=== PATIENT | male | born 1960 | race Caucasian/White ===

== ENCOUNTER 2021-04-09 09:51 | Emergency (ER) | payer MEDICARE, SELFPAY ==
[2021-04-09] VITALS (30 sets, daily range): BP systolic 121–157; BP diastolic 85–102; PULSE 75–91; RESP 8–26; TEMP 36.8–36.9; O2SAT 90–100
--- NOTE | ~2021-04-09 | CT_ITS ---
EXAMINATION: CT abdomen pelvis w con EXAM DATE: 04/09/2021 11:52 INDICATION: Diverticulitis. Intermittent left-sided abdominal pain. Prostate cancer. Bone metastases. TECHNIQUE: Spiral CT of the abdomen and pelvis was performed following intravenous injection of 100 m L Omnipaque 350. Axial, coronal and sagittal images of the abdomen and pelvis were reviewed. The do se-length product (DLP) for this examination was 497.09 mGy-cm. The exposure was tailored according to patient size (auto mA exposure control), and iterative reconstruction (ASIR) was used as additiona l dose reduction technique. Comparison is made to prior examination from 04/10/2019. FINDINGS: There is a 7 mm stone in the left ureteropelvic junction with mild left hydronephrosis and a delayed nephrogram. Additional 6 mm left inferior calyceal stone. There is a 3 mm right inferior ca lyceal stone. The liver, spleen, adrenal glands and pancreas are unremarkable. Gallbladder is unrem arkable. No biliary obstruction. Couple of metallic clips in prostate bed. The bladder is collaps ed at time of imaging limiting evaluation. There is no retroperitoneal or pelvic lymphadenopathy. There is mild scattered arteriosclerotic disease. Cecum distended with stool. There is moderate scattered colonic diverticulosis. There is no adjacent inflammatory change to suggest diverticulitis. There is small sliding gastroesophageal hiatal hernia . No free intraperitoneal gas. The heart is normal in size. There are no pericardial or pleura l effusions. Dependent subsegmental atelectasis. There are no osteoblastic or osteolytic lesions id entified. IMPRESSION: 1. Left UPJ 7 mm stone, mild hydronephrosis. Delayed nephrogram. 2. Bilateral nephrolithiasis. 3. Colonic diverticulosis. 4. Small hiatal hernia. Reviewed, dictated and finalized at location A.
[2021-04-09 11:21] LABS: Basophils Percent Auto 0.2 % (0.2-1.2); Hematocrit 43.7 % (42.0-52.0); Hemoglobin 14.1 g/dL (14.0-18.0); Immature Granulocyte Absolute 0.03 K/mm3 (0.00-0.031); Immature Granulocyte Percent A 0.3 % (0-0.5); Lymphocytes Absolute Auto 0.52 K/mm3 (0.9-3.2); Lymphocytes Percent Auto 5.3 % (18.3-44.2); Mean Corpuscular HGB Conc 32.3 g/dl (32-36); Mean Corpuscular Hemoglobin 27.5 pg (26-34); Mean Corpuscular Volume 85.2 fl (80-100); Mean Platelet Volume 10.3 fl (7.4-10.4); Monocytes Absolute Auto 0.9 K/mm3 (0.1-0.6); Monocytes Percent Auto 9.2 % (2.6-8.5); Neutrophils Absolute Auto 8.4 K/mm3 (1.3-6.7); Platelet Count Result 186 k/mm3 (150-375); Red Blood Count 5.13 M/mm3 (4.6-6.20); Red Cell Distribution Width 13.8 % (11.5-14.5); White Blood Count 9.8 K/mm3 (4.5-10.0)
--- NOTE | 2021-04-09 11:23 | ED.ABDPAIN ---
HPI - Abdominal Pain General Chief Complaint: Abdominal Pain Stated Complaint: ABD Pain Time Seen by Provider: 04/09/21 11:06 History of Present Illness HPI narrative: 61 yo male w/ h/o kidney stone presents to the ED c/o Abdominal pain. He reports left sided abdominal pain since last night. Primarily RUQ, but has started radiating throughout the entire abdomen. Asscoiated with vomiting and sour taste in his mouth. Feels somewhat like previous kidney stone. No diarrhea, constipation, fever, CP, SOB. Related Data Home Medications Medication Instructions Recorded Confirmed calcium carbonate 600 mg calcium 600 mg PO DAILY 04/01/21 04/09/21 (1,500 mg) tablet cholecalciferol (vitamin D3) 1,250 1,250 mcg PO [id number] 04/01/21 04/09/21 mcg (50,000 unit) capsule omeprazole 20 mg delayed 20 mg PO DAILY PRN 04/01/21 04/09/21 release,disintegrating tablet Allergies Allergy/AdvReac Type Severity Reaction Status Date / Time No Known Allergies Allergy Verified 04/09/21 16:03 Review of Systems Review of Systems: All systems reviewed & are unremarkable except as noted in HPI and below Neurologic: Denies dizziness, Denies numbness and Denies weakness PMFSH Past Medical History Medical History Acid reflux Anxiety Arthritis Cancer of prostate Erectile dysfunction Inguinal hernia Metastatic bone cancer Renal calculi Surgical History Surgical History H/O prostatectomy H/O vasectomy Family History Family History Father Alcoholism Bone cancer Mesothelioma Depression Hypertension Mother Bone cancer Depression Sibling Astrocytoma brain tumor Social History Social History Smoking packs per day: 1 Smoking cigarettes per day: 20.0 Years smoked: 10 Smoking pack-years: 10.00 Smoking status: Former smoker Tobacco type: cigarettes Smoking end date: 02/12/83 Alcohol intake: current Substance use: never Substance use type: does not use Living arrangements: with family Additional living arrangements comments: & CHILDREN Spiritual care concerns: No Agree to blood products: Yes Exam Const: General: healthy appearing, no acute distress and alert Orientation/consciousness: patient oriented x3 HENMT: Head: normal to inspection Neck: Neck: normal visual inspection Resp: Effort & Inspection: normal respiratory effort Auscultation: clear to auscultation bilaterally, no rales, no rhonchi and no wheezes Cardio: Jugular venous distension: no JVD Rate: regular rate Rhythm: regular rhythm Heart sounds: no murmurs GI: Inspection: non-distended GI Palp: Yes Soft to palpation, Yes Tenderness to palpation present (GI) (LLQ), No Guarding due to palpation present (GI) and No Rebound tenderness present : General: Yes no CVA tenderness Skin: General skin exam: normal color Neuro: General: patient oriented x3 and moves all extremities Speech: normal speech Extrem: General: no edema Psych: Appearance: well kempt Affect: normal affect Course Vital Signs Vital signs: Vital Signs Pulse Rate 75 04/09/21 09:57 Respiratory Rate 20 04/09/21 09:57 Pulse Oximetry 94 04/09/21 09:57 Temperature 36.9 C 04/09/21 15:41 Pulse Rate 84 04/09/21 15:41 Respiratory Rate 20 04/09/21 15:41 Blood Pressure 155/85 H 04/09/21 15:41 Pulse Oximetry 100 04/09/21 15:41 MDM - Abdominal Pain MDM Narrative Medical decision making narrative: Dr. Shaikh has seen the patient and will plan to take him for lithotripsy tomorrow. Differential Diagnosis Differential diagnosis: Likely calculus of kidney, constipation, diverticulitis and pancreatitis Medical Records Attestation: I reviewed the patient's medical records. Lab Data
[2021-04-09 11:31] LABS: Alanine Aminotransferase 15 U/L (4-50); Albumin Level 4.4 g/dL (3.5-5.1); Alkaline Phosphatase 80 U/L (38-126); Anion Gap 10 mmol/L (8-16); Aspartate Amino Transferase 24 U/L (17-59); Bilirubin,Total 1.2 mg/dL (0.2-1.3); Blood Urea Nitrogen 22 mg/dL (9-20); Calcium 10.3 mg/dL (8.4-10.2); Carbon Dioxide 22 mmol/L (22-30); Chloride 107 mmol/L (98-107); Estimated CRCL calculation 57 ml/min; Estimated Glomerular Filt Rate 56; Glucose 113 mg/dL (65-110); Lipase 31 U/L (23-300); Potassium 3.6 mmol/L (3.4-5.0); Sodium 139 mmol/L (137-145)
[2021-04-09] MEDS: MAG HYDROX/AL HYDROX/SIMETH 30 ML UDC PO (11:32)
[2021-04-09] MEDS: PANTOPRAZOLE SODIUM IV 40 MG VIAL IV PUSH (11:32)
[2021-04-09] MEDS: ONDANSETRON INJ 4 MG/2 ML VIAL IV PUSH (11:32)
[2021-04-09] MEDS: SODIUM CHLORIDE 0.9% IV 1,000 ML 999 ML IV CONT ×2 (11:33→14:08)
--- NOTE | 2021-04-09 11:45 | PC.NURSE ---
Pt off floor to radiology
[2021-04-09] MEDS: fentaNYL CITRATE INJ (*CRX) 100 MCG/2 ML VIAL 50 MCG IV PUSH (12:26)
[2021-04-09] MEDS: TAMSULOSIN HCL 0.4 MG CAPSULE PO (12:28)
[2021-04-09 13:31] LABS: Add Urine Microscopic? YES; Amorphous Sediment Urine Few; Appearance Urine Cloudy (Clear); Bilirubin Urine Negative (Negative); Blood Urine Negative (Negative); Color Urine Yellow (Yellow); Glucose Urine UA Negative (Negative); Ketones Urine 1+ mg/dL (Negative); Leukocyte Esterase Ur Negative LEU/UL (Negative); Mucus Urine Rare /lpf; Nitrate Urine Negative (Negative); Protein Urine 1+ mg/dL (Negative); Specific Grav Ur 1.023 (1.001-1.035); Urobilinogen Urine Negative mg/dL (<2.0)
[2021-04-09 15:13] LABS: WBC Urine 0-3 /hpf
[2021-04-09] MEDS: MORPHINE SULFATE (*CRX) 4 MG/ML INJ IV PUSH (15:32)
== END 2021-04-09 15:45 | disposition home or self-care (01) ==
PROVIDERS: Physician Assistant; Emergency Provider Emergency Medicine; PCP Physician Assistant
DX: N13.2 Hydronephrosis with renal and ureteral calculous obstruction (principal); Z87.442 Personal history of urinary calculi; K21.9 Gastro-esophageal reflux disease without esophagitis; M19.90 Unspecified osteoarthritis, unspecified site; Z85.830 Personal history of malignant neoplasm of bone; Z90.79 Acquired absence of other genital organ(s); Z87.891 Personal history of nicotine dependence; K57.90 Diverticulosis of intestine, part unspecified, without perforation or abscess without bleeding; K44.9 Diaphragmatic hernia without obstruction or gangrene
CPT/HCPCS: 36415; 74177; 80053; 81001; 83690; 85025; 96361; 96374; 96375; 99284; A9270; C9113; J2270; J2405; J3010; J7030; Q9967

== ENCOUNTER 2021-04-10 02:20 | Day surgery (SDC) | payer MEDICARE, SELFPAY ==
[2021-04-09 16:09] VITALS: BMI 26.6
--- NOTE | 2021-04-09 16:51 | PM.HPGS ---
History of Present Illness History of Present Illness Consent: Risks, benefits, and alternatives have been discussed and questions answered. Patient agrees to proceed with procedure. Chief complaint: left kidney stone Narrative: Remy Zamorano is a 61 year old male with a known history of infrequent urolithiasis that have, on occasion, required intervention. He presents to the ER with acute left flank pain, nausea and vomiting. Axial imaging demonstrates a stone obstructing 7 mm left proximal ureteral stone. He has had no fevers chills or gross hematuria and urinalysis does not appear infected. He has not on anticoagulants. After discussion of options we elected for outpatient ESWL. He is aware the risk including, but not limited to, adverse cardiopulmonary events, urinary tract infection, failure to completely treat the stone and perinephric hematoma. Review of Systems Cardiovascular: Cardiovascular: Denies chest pain, Denies lightheadedness, Denies palpitations and Denies dyspnea Respiratory: Respiratory: Denies dyspnea Gastrointestinal: Gastrointestinal: Denies diarrhea, Denies nausea and Denies vomiting Genitourinary: Genitourinary: Denies hematuria and Denies dysuria Endocrine: Endocrine: Denies palpitations PMFSH Past Medical History Medical History Acid reflux Anxiety Arthritis Cancer of prostate Erectile dysfunction Inguinal hernia Metastatic bone cancer Renal calculi Surgical History Surgical History H/O prostatectomy H/O vasectomy Family History Family History Father Alcoholism Bone cancer Mesothelioma Depression Hypertension Mother Bone cancer Depression Sibling Astrocytoma brain tumor Social History Social History Smoking packs per day: 1 Smoking cigarettes per day: 20.0 Years smoked: 10 Smoking pack-years: 10.00 Smoking status: Former smoker Tobacco type: cigarettes Smoking end date: 02/12/83 Alcohol intake: current Substance use: never Substance use type: does not use Living arrangements: with family Additional living arrangements comments: & CHILDREN Spiritual care concerns: No Agree to blood products: Yes Meds Home Medications and Allergies Home Medications Medication Instructions Recorded Confirmed Type calcium carbonate 600 mg calcium 600 mg PO DAILY 04/01/21 04/09/21 History (1,500 mg) tablet cholecalciferol (vitamin D3) 1,250 1,250 mcg PO [id number] 04/01/21 04/09/21 History mcg (50,000 unit) capsule omeprazole 20 mg delayed 20 mg PO DAILY PRN 04/01/21 04/09/21 History release,disintegrating tablet tadalafil 10 mg tablet 10 mg PO DAILY PRN #10 tablet 04/01/21 04/09/21 Rx alprazolam 0.5 mg tablet 0.5 mg PO BID PRN #60 tablet 04/06/21 04/09/21 Rx hydrocodone 7.5 mg-acetaminophen 1 tablet PO Q4H PRN #30 tablet 04/06/21 04/09/21 Rx 325 mg tablet ciprofloxacin HCl 500 mg PO Q12H #6 tablet 04/09/21 04/09/21 Rx hydrocodone-acetaminophen 1 tablet PO Q6H PRN #20 tablet 04/09/21 04/09/21 Rx Allergies Allergy/AdvReac Type Severity Reaction Status Date / Time No Known Allergies Allergy Verified 04/09/21 16:03 Exam Const: General: no acute distress Resp: Effort & Inspection: normal respiratory effort GI: Inspection: non-distended GI Palp: No abdominal tenderness and No Guarding due to palpation present (GI) Auscultation: normal bowel sounds Assessment and Plan Assessment and plan (1) Calculus of left ureter: Code(s): N20.1 - Calculus of ureter Status: Acute Assessment and Plan: Left ESWL
[2021-04-10] VITALS (10 sets, daily range): BP systolic 125–151; BP diastolic 59–89; PULSE 62–75; RESP 14–18; TEMP 36.2; O2SAT 98–100
--- NOTE | ~2021-04-10 | XR_ITS ---
EXAMINATION: XR abdomen/kub 1V DATE: 04/10/2021 12:20 INDICATION: Left-sided ureteral stone. TECHNIQUE: A supine view of the abdomen on 2 radiographs was obtained. COMPARISON: CT dated 04/09/2021 FINDINGS: The previously identified 7 mm stone at the left ureteropelvic junction and 6 mm stone at the lower p ole of the left kidney are both clearly visible on the plain radiographs. No other urolithiasis with additional smaller stones seen at the lower pole calyx of the right kidney on prior CT obscured by mo ttled stool and gas in the proximal colon. No dilated loops of small bowel to suggest obstruction. Po stoperative changes in the pelvis. Moderate lower lumbar spondylosis. Mild left-sided and moderate ri ght-sided hip osteoarthritis. IMPRESSION: 1. Previously noted stones at the lower pole of the left kidney and at the left ureteropelvic junctio n are clearly visible on the plain radiographs. Reviewed, dictated and finalized at location B. IMPRESSION: 1. Previously noted stones at the lower pole of the left kidney and at the left ureteropelvic junction are clearly visible on the plain radiographs.
--- NOTE | 2021-04-10 06:34 | WPDHPUPDATE1 ---
History and Physical Update Update Date/Time: 04/10/21 06:34 History and Physical has been reviewed, including an updated exam of the patient. There are NO changes in the patient's condition. Risks, benefits, and alternatives have been discussed and questions answered. Patient agrees to proceed with procedure.
[2021-04-10] MEDS: LACTATED RINGERS 1,000 ML 30 ML IV CONT ×2 (12:50→16:09)
--- NOTE | 2021-04-10 12:55 | WPDANESEPPF ---
Anes - Initial Pre Proc Eval Procedure: Operation Date: 04/10/21 14:00 Proposed Procedures p Left Extracorporeal Shock Wave Lithotripsy - Isaac Shaikh MD Date/Time: 04/10/21 12:55 Surgeon: Isaac Shaikh MD Pre Op Diagnosis: left kidney stone Patient Data Age: 61 Gender: M Height: 1.83 m Weight: 89 kg Allergies Allergy/AdvReac Type Severity Reaction Status Date / Time No Known Allergies Allergy Verified 04/09/21 16:03 Home Medications Medication Instructions Recorded Confirmed Type calcium carbonate 600 mg calcium 600 mg PO DAILY 04/01/21 04/09/21 History (1,500 mg) tablet cholecalciferol (vitamin D3) 1,250 1,250 mcg PO [id number] 04/01/21 04/09/21 History mcg (50,000 unit) capsule omeprazole 20 mg delayed 20 mg PO DAILY PRN 04/01/21 04/09/21 History release,disintegrating tablet tadalafil 10 mg tablet 10 mg PO DAILY PRN #10 tablet 04/01/21 04/09/21 Rx alprazolam 0.5 mg tablet 0.5 mg PO BID PRN #60 tablet 04/06/21 04/09/21 Rx hydrocodone 7.5 mg-acetaminophen 1 tablet PO Q4H PRN #30 tablet 04/06/21 04/09/21 Rx 325 mg tablet ciprofloxacin HCl 500 mg PO Q12H #6 tablet 04/09/21 04/09/21 Rx hydrocodone-acetaminophen 1 tablet PO Q6H PRN #20 tablet 04/09/21 04/09/21 Rx Patient hx anesthesia problems: none Family hx anesthesia problems: none PMFSH Past Medical History Medical History Acid reflux Anxiety Arthritis Cancer of prostate Erectile dysfunction Inguinal hernia Metastatic bone cancer Renal calculi Surgical History Surgical History H/O prostatectomy H/O vasectomy Family History Family History Father Alcoholism Bone cancer Mesothelioma Depression Hypertension Mother Bone cancer Depression Sibling Astrocytoma brain tumor Social History Social History Smoking packs per day: 1 Smoking cigarettes per day: 20.0 Years smoked: 10 Smoking pack-years: 10.00 Smoking status: Former smoker Tobacco type: cigarettes Smoking end date: 02/12/83 Alcohol intake: current Substance use: never Substance use type: does not use Living arrangements: with family Additional living arrangements comments: & CHILDREN Spiritual care concerns: No Agree to blood products: Yes Anes - Eval Final PreProcedure Day of Procedure 04/10/21 12:55 Patient weight: overweight Heart: regular rate and rhythm Lungs: clear to auscultation and normal air movement Airway: Mallampati scale class II Neurological: alert and oriented Last oral intake: >/= 8 hours ASA classification: II Emergent: no Anesthetic plan: proceed Anesthesia type and monitoring: general LMA and standard monitoring Informed Consent: The patient's anesthetic plan and its attendant risks and benefits were discussed with the patient/family/POA. Questions were solicited and answers provided to the satisfaction of the patient/family/POA.
[2021-04-10] MEDS: fentaNYL CITRATE INJ (*CRX) 100 MCG/2 ML VIAL 25 MCG IV PUSH ×7 (13:00→15:57)
[2021-04-10] MEDS: ceFAZolin 2 GM/D5W 50 ML 2 GM/50 ML BAG IVPB (13:37)
[2021-04-10 13:59] LABS: INR 0.9; Prothrombin Time 12.3 Seconds (11.1-14.7)
[2021-04-10 14:00] LABS: Partial Thromboplastin Time 22.6 SECONDS (22.3-36.8)
--- NOTE | 2021-04-10 14:05 | W.PM.PROC2 ---
Procedure Note - Detailed Date of Procedure 04/10/21 Pre-op Diagnosis Left ureteral stone Post-op Diagnosis same Procedure Performed Left ESWL Surgeon Isaac Shaikh MD Anesthesia general Description of Procedure The patient was brought to the operative suite where he was placed in the supine position on the Dornier lithotripsy table. The focal point of the lithotripter was placed at a 7mm left proximal ureteral calculus. A total of 3000 shocks were delivered at a power setting of 6. There appeared to be good fragmentation of the stone. The patient tolerated the procedure well and was taken to the recovery room in good condition. Estimated Blood Loss 0 Drains No Packing No Pathology none sent Complications No immediate complications Condition stable Disposition PACU
--- NOTE | 2021-04-10 14:57 | SUR.PHASEI ---
Simple mask removed at 3086.
[2021-04-10] MEDS: oxyCODONE HCL (*CRX) 5 MG TAB IR PO (15:41)
[2021-04-10] MEDS: KETOROLAC 30 MG/ML VIAL (*BKC) IV PUSH (15:58)
== END 2021-04-10 17:15 | disposition home or self-care (01) ==
PROVIDERS: PCP Physician Assistant; Visit Provider Urology
PROC: (CPT 50590; principal; 2021-04-10 14:00)
DX: N20.1 Calculus of ureter (principal); F41.9 Anxiety disorder, unspecified; M19.90 Unspecified osteoarthritis, unspecified site; K21.9 Gastro-esophageal reflux disease without esophagitis; Z87.891 Personal history of nicotine dependence; Z85.46 Personal history of malignant neoplasm of prostate; Z85.830 Personal history of malignant neoplasm of bone
CPT/HCPCS: 50590; 36415; 74018; 85610; 85730; A9270; J0131; J0690; J1100; J1885; J2250; J2405; J2704; J3010; J7120

== ENCOUNTER 2021-04-12 06:08 | Emergency (ER) | payer MEDICARE, SELFPAY ==
--- NOTE | ~2021-04-12 | XR_ITS ---
EXAMINATION: CT abdomen pelvis wo con, XR abdomen/kub 1V DATE: 04/12/2021 06:31 INDICATION: Nephrolithiasis presenting with left flank pain. TECHNIQUE: 1. Computed tomography (CT) of the abdomen and pelvis was performed without intravenous contrast. Aut omated exposure control and iterative reconstruction technique were employed. The dose-length product was 215.42 mGy-cm. 2. AP view of the abdomen and pelvis was obtained on 2 radiographs. COMPARISON: CT dated 04/09/2021 and KUB dated 04/10/2021 FINDINGS: CT: Linear bands of discoid atelectasis at the dependent aspect of the bilateral lower lobes. Heart size is normal. No pericardial or pleural effusion. Small sliding-type hiatal hernia. 1 cm low-attenuation cyst in the right hepatic lobe. Gallbladder, spleen, pancreas and bilateral adrenal glands are terese l. 2 mm nonobstructing stone at a lower pole calyx of the right kidney. Obstructing 3 mm stone in the proximal left ureter. There is mild proximal hydroureteronephrosis with additional 1 mm and [address] aurora in the mildly dilated proximal ureter. There are 4 additional nonobstructing stones, the largest measuring up to 4 mm in the calyces of the lower pole of the left kidney. On the earlier CT there wer e single larger stones in the left ureter and at the lower pole of the left kidney suggesting that th e current stones represent stone fragments secondary to interval lithotripsy. Bladder is normal. Ly ls including the appendix are normal. Postoperative change of prior right inguinal hernia mesh repair . There are couple additional surgical clips at the base of the prostate. No free intraperitoneal gas or fluid. No pathologically enlarged abdominal or pelvic lymphadenopathy. Mild lumbar dextrocurvatur e with moderate spondylosis. Moderate bilateral hip osteoarthritis. KUB: The larger obstructing stone in the proximal left ureter as well as couple of the larger stones at th e lower pole of the left kidney and the stone at the lower pole of the right kidney are all visible o n the plain radiographs. Postoperative changes in the pelvis. IMPRESSION: 1. Bilateral nephrolithiasis with obstructing 3 mm stone in the proximal left ureter with persistent mild left hydroureteronephrosis. There appear to be more and smaller stones in the left kidney and ur eter than on the prior cyst with interval lithotripsy. Reviewed, dictated and finalized at location A. IMPRESSION: 1. Bilateral nephrolithiasis with obstructing 3 mm stone in the proximal left u reter with persistent mild left hydroureteronephrosis. There appear to be more and smaller stones in the left kidney and ureter than on the prior cyst with in terval lithotripsy.
[2021-04-12 06:11] VITALS: BP 173/90; PULSE 66; RESP 18; TEMP 36.4
--- NOTE | 2021-04-12 06:16 | ED.ABDPAIN ---
HPI - Abdominal Pain General Chief Complaint: Abdominal Pain <Omar Plaza DO - Last Filed: 04/12/21 06:17> Stated Complaint: abd pain <Omar Plaza DO - Last Filed: 04/12/21 06:17> Time Seen by Provider: 04/12/21 06:17 <Omar Plaza DO - Last Filed: 04/12/21 06:17> Source: RN notes reviewed <Omar Plaza DO - Last Filed: 04/12/21 06:17> History of Present Illness HPI narrative: Patient presents to emergency department from home for left flank pain. Patient had left-sided lithotripsy performed by Dr. Montiel on 04/10/2021. Patient states she had a few episodes of pain yesterday but he states pain became severe approximately 2 hours ago pain is located in the left flank and radiates around the left abdomen described as sharp and stabbing associate with nausea. Patient denies any fever chills chest pain shortness of breath or any other symptoms states he took hydrocodone for pain at home with minimal <Omar Plaza DO - Last Filed: 04/12/21 06:17> Related Data Home Medications: Home Medications Medication Instructions Recorded Confirmed calcium carbonate 600 mg calcium 600 mg PO DAILY 04/01/21 04/09/21 (1,500 mg) tablet cholecalciferol (vitamin D3) 1,250 1,250 mcg PO [id number] 04/01/21 04/09/21 mcg (50,000 unit) capsule omeprazole 20 mg delayed 20 mg PO DAILY PRN 04/01/21 04/09/21 release,disintegrating tablet <Omar Plaza DO - Last Filed: 04/12/21 06:17> Allergies/Adverse Reactions: Allergies Allergy/AdvReac Type Severity Reaction Status Date / Time No Known Allergies Allergy Verified 04/10/21 13:18 <Omar Plaza DO - Last Filed: 04/12/21 06:17> Review of Systems Review of Systems: Gen.: Denies fevers or chills ENT: Denies congestion Respiratory: Denies shortness of breath or cough CV: Denies chest pain or palpitations GI: See HPI denies burning, urgency, frequency or hematuria Musculoskeletal: Denies back pain or muscle pain Neuro: Denies numbness, tingling, weakness or focal weakness Skin: Denies rash Except as documented, all other systems reviewed and negative <Omar Plaza DO - Last Filed: 04/12/21 06:17> [facility] Past Medical History Medical History: Medical History Acid reflux Anxiety Arthritis Cancer of prostate Erectile dysfunction Inguinal hernia Metastatic bone cancer Renal calculi <Omar Plaza DO - Last Filed: 04/12/21 06:17> Surgical History Surgical History: Surgical History H/O prostatectomy H/O vasectomy <Omar Plaza DO - Last Filed: 04/12/21 06:17> Family History Family History: Family History Father Alcoholism Bone cancer Mesothelioma Depression Hypertension Mother Bone cancer Depression Sibling Astrocytoma brain tumor <Omar Plaza DO - Last Filed: 04/12/21 06:17> Social History Social History: Social History Smoking packs per day: 1 Smoking cigarettes per day: 20.0 Years smoked: 10 Smoking pack-years: 10.00 Smoking status: Former smoker Tobacco type: cigarettes Smoking end date: 02/12/83 Alcohol intake: current Substance use: never Substance use type: does not use Additional living arrangements comments: & CHILDREN Spiritual care concerns: No Agree to blood products: Yes <Omar Plaza DO - Last Filed: 04/12/21 06:17> Exam Narrative: APPEARANCE: No acute distress, nontoxic, resting in bed EYES: EOMI HEENT: Normocephalic, atraumatic, OMM RESPIRATORY: No respiratory distress Clear to auscultation bilaterally with no rhonchi wheezing or rales. CARDIOVASCULAR: Regular rate and rhythm without murmurs rubs or gallops. ABDOMINAL: Soft, non
--- NOTE | 2021-04-12 06:22 | PC.NURSE ---
Patient in CT.
[2021-04-12] MEDS: KETOROLAC 30 MG/ML VIAL (*BKC) IV PUSH (06:28)
[2021-04-12] MEDS: SODIUM CHLORIDE 0.9% IV 1,000 ML 999 ML IV CONT (06:28)
[2021-04-12] MEDS: ONDANSETRON INJ 4 MG/2 ML VIAL IV PUSH (06:28)
[2021-04-12 06:30] LABS: Basophils Percent Auto 0.3 % (0.2-1.2); Eosinophils Absolute Auto 0.2 K/mm3 (0-0.3); Eosinophils Percent Auto 2.6 % (0-4.4); Hematocrit 39.4 % (42.0-52.0); Hemoglobin 12.7 g/dL (14.0-18.0); Immature Granulocyte Absolute 0.02 K/mm3 (0.00-0.031); Immature Granulocyte Percent A 0.3 % (0-0.5); Lymphocytes Absolute Auto 1.62 K/mm3 (0.9-3.2); Lymphocytes Percent Auto 24.8 % (18.3-44.2); Mean Corpuscular HGB Conc 32.2 g/dl (32-36); Mean Corpuscular Hemoglobin 27.7 pg (26-34); Mean Corpuscular Volume 85.8 fl (80-100); Mean Platelet Volume 9.8 fl (7.4-10.4); Monocytes Absolute Auto 1.1 K/mm3 (0.1-0.6); Monocytes Percent Auto 16.2 % (2.6-8.5); Neutrophils Absolute Auto 3.6 K/mm3 (1.3-6.7); Neutrophils Percent Auto 55.8 % (45.5-73.1); Platelet Count Result 179 k/mm3 (150-375); Red Blood Count 4.59 M/mm3 (4.6-6.20); Red Cell Distribution Width 13.5 % (11.5-14.5); White Blood Count 6.5 K/mm3 (4.5-10.0)
--- NOTE | 2021-04-12 06:32 | PC.NURSE ---
Patient taken to xray.
[2021-04-12] MEDS: TAMSULOSIN HCL 0.4 MG CAPSULE PO (06:39)
[2021-04-12 06:44] LABS: Alanine Aminotransferase 14 U/L (4-50); Albumin Level 3.6 g/dL (3.5-5.1); Alkaline Phosphatase 65 U/L (38-126); Anion Gap 6 mmol/L (8-16); Aspartate Amino Transferase 22 U/L (17-59); Bilirubin,Total 0.7 mg/dL (0.2-1.3); Blood Urea Nitrogen 19 mg/dL (9-20); Carbon Dioxide 24 mmol/L (22-30); Chloride 110 mmol/L (98-107); Estimated CRCL calculation 81 ml/min; Estimated Glomerular Filt Rate > 60; Glucose 95 mg/dL (65-110); Lipase 34 U/L (23-300); Potassium 3.9 mmol/L (3.4-5.0); Sodium 140 mmol/L (137-145)
[2021-04-12 06:56] VITALS: BP 145/82; PULSE 56; RESP 14; O2SAT 95
[2021-04-12 07:37] LABS: Add Urine Microscopic? YES; Appearance Urine Cloudy (Clear); Bacteria Urine Trace /hpf; Bilirubin Urine Negative (Negative); Blood Urine 3+ (Negative); Budding Yeast Urine Present /hpf; Color Urine Yellow (Yellow); Glucose Urine UA Negative (Negative); Ketones Urine 1+ mg/dL (Negative); Leukocyte Esterase Ur Negative LEU/UL (Negative); Mucus Urine Rare /lpf; Nitrate Urine Negative (Negative); Protein Urine 2+ mg/dL (Negative); RBC Urine >75 /hpf (0-2); Specific Grav Ur 1.018 (1.001-1.035); WBC Urine 16-20 /hpf
[2021-04-12 08:57] VITALS: BP 116/70; PULSE 82; RESP 18; O2SAT 100
== END 2021-04-12 09:18 | disposition home or self-care (01) ==
PROVIDERS: Emergency Medicine; Emergency Provider Emergency Medicine; PCP Physician Assistant
DX: N13.2 Hydronephrosis with renal and ureteral calculous obstruction (principal); K21.9 Gastro-esophageal reflux disease without esophagitis; M19.90 Unspecified osteoarthritis, unspecified site; Z85.46 Personal history of malignant neoplasm of prostate; Z85.830 Personal history of malignant neoplasm of bone; Z87.442 Personal history of urinary calculi; Z90.79 Acquired absence of other genital organ(s); Z87.891 Personal history of nicotine dependence
CPT/HCPCS: 36415; 74018; 74176; 80053; 81001; 83690; 85025; 87086; 96361; 96374; 96375; 99284; A9270; J1885; J2405; J7030

== ENCOUNTER 2023-11-16 08:12 | Day surgery (SDC) | payer MEDICARE, SELFPAY ==
[2023-10-27 15:21] VITALS: BMI 25.5
[2023-11-03 14:18] VITALS: BMI 25.8
[2023-11-16 09:41] VITALS: BP 125/83; PULSE 61; RESP 16; TEMP 36.7; O2SAT 99; BMI 24.7
[2023-11-16] MEDS: LACTATED RINGERS 1,000 ML 150 ML IV CONT (09:43)
--- NOTE | 2023-11-16 09:58 | PM.HPGS ---
History of Present Illness History of Present Illness Consent: Risks, benefits, and alternatives have been discussed and questions answered. Patient agrees to proceed with procedure. Chief complaint: Neoplasm Screening of Colon Narrative: Remy Zamorano is a 63 year old male presents for screening colonoscopy. Patient has current weight appetite and bowel habits are normal. He denies abdominal pain. Patient has had no bleeding. Family history noncontributory. Review of Systems Review of Systems: Review of Systems noncontributory. [facility] Past Medical History Medical History Acid reflux Anxiety Arthritis Cancer of prostate Erectile dysfunction History of hepatitis C Inguinal hernia Metastatic bone cancer Renal calculi Surgical History Surgical History H/O prostatectomy H/O tooth extraction Pt had all teeth surgically extracted Mar 2022. H/O vasectomy Family History Family History Father Family history of lung cancer Father Alcoholism Bone cancer Mesothelioma Depression Hypertension Mother Bone cancer Depression Sibling Astrocytoma brain tumor Other Family history of tuberculosis Social History Social History Smoking packs per day: 1 Smoking cigarettes per day: 20.0 Years smoked: 10 Smoking pack-years: 10.00 Smoking status: Never smoker Tobacco type: cigarettes Smoking end date: 02/12/83 Alcohol intake: current Alcohol use details: seldom; socially Substance use: never Substance use type: does not use Lack of Transportation: No Lack of Food: Never True Current Housing: I Have Housing Concerned About Future Housing: No Difficulty Paying Gas/Electric Bills: No Difficulty Paying for Meds: No Currently Unemployed: No Education: High School Diploma/GED Difficulty w/ Childcare or Family Care: No Living arrangements: with family Additional living arrangements comments: & CHILDREN Spiritual care concerns: No Agree to blood products: Yes Meds Home Medications and Allergies Home Medications Medication Instructions Recorded Confirmed Type omeprazole 20 mg delayed 20 mg PO DAILY PRN Indigestion 04/01/21 11/16/23 History release,disintegrating tablet hydrocodone 7.5 mg-acetaminophen 1 tablet PO Q4H PRN pain #30 tabs 03/12/24 04/03/24 Rx 325 mg tablet sildenafil (pulm.hypertension) 20 40 mg PO DAILY PRN Erectile 11/03/23 11/16/23 History mg tablet Dysfunction Allergies Allergy/AdvReac Type Severity Reaction Status Date / Time No Known Allergies Allergy Verified 11/16/23 09:31 Vital Signs Vital Signs - 24 hr 11/16/23 09:41 Temperature 98.1 F Pulse Rate 61 Respiratory Rate 16 Blood Pressure 125/83 Pulse Oximetry 99 Oxygen Delivery Room Air Exam Narrative: Physical exam reveals patient to be alert signs stable. HEENT exam is unremarkable. Patient is anicteric. Lungs are clear to auscultation and to percussion. Heart is without murmur or extra sounds. Abdomen bowel sounds are present soft nontender with no organomegaly. Digital external rectal exam is normal. Assessment and Plan Assessment and plan (1) Encounter for screening colonoscopy: Code(s): Z12.11 - Encounter for screening for malignant neoplasm of colon Status: Acute Assessment and Plan: Patient presents for screening colonoscopy. He appears to be at average risk for colon polyps.
--- NOTE | 2023-11-16 10:30 | WPDANESEPPF ---
Anes - Initial Pre Proc Eval Procedure: Operation Date: 11/16/23 10:30 Proposed Procedures p Screening Colonoscopy - Ronald Leach MD Date/Time: 11/16/23 10:30 Surgeon: Ronald Leach MD Pre Op Diagnosis: Neoplasm Screening of Colon Patient Data Age: 63 Gender: M Height: 1.83 m Weight: 82.8 kg Last Vital Signs Temp 36.7 C 11/16/23 09:41 Pulse 61 11/16/23 09:41 Resp 16 11/16/23 09:41 BP 125/83 11/16/23 09:41 Pulse Ox 99 11/16/23 09:41 O2 Del Method Room Air 11/16/23 09:41 Allergies Allergy/AdvReac Type Severity Reaction Status Date / Time No Known Allergies Allergy Verified 11/16/23 09:31 Home Medications Medication Instructions Recorded Confirmed Type omeprazole 20 mg delayed 20 mg PO DAILY PRN Indigestion 04/01/21 11/16/23 History release,disintegrating tablet hydrocodone 7.5 mg-acetaminophen 1 tablet PO Q4H PRN pain #30 tabs 10/25/23 11/16/23 Rx 325 mg tablet sildenafil (pulm.hypertension) 20 40 mg PO DAILY PRN Erectile 11/03/23 11/16/23 History mg tablet Dysfunction Patient hx anesthesia problems: none Family hx anesthesia problems: none Results Review: All pre-operative results and documents have been reviewed as part of the pre-operative evaluation. [facility] Past Medical History Medical History Acid reflux Anxiety Arthritis Cancer of prostate Erectile dysfunction History of hepatitis C Inguinal hernia Metastatic bone cancer Renal calculi Surgical History Surgical History H/O prostatectomy H/O tooth extraction Pt had all teeth surgically extracted Mar 2022. H/O vasectomy Family History Family History Father Family history of lung cancer Father Alcoholism Bone cancer Mesothelioma Depression Hypertension Mother Bone cancer Depression Sibling Astrocytoma brain tumor Other Family history of tuberculosis Social History Social History Smoking packs per day: 1 Smoking cigarettes per day: 20.0 Years smoked: 10 Smoking pack-years: 10.00 Smoking status: Never smoker Tobacco type: cigarettes Smoking end date: 02/12/83 Alcohol intake: current Alcohol use details: seldom; socially Substance use: never Substance use type: does not use Lack of Transportation: No Lack of Food: Never True Current Housing: I Have Housing Concerned About Future Housing: No Difficulty Paying Gas/Electric Bills: No Difficulty Paying for Meds: No Currently Unemployed: No Education: High School Diploma/GED Difficulty w/ Childcare or Family Care: No Living arrangements: with family Additional living arrangements comments: & CHILDREN Spiritual care concerns: No Agree to blood products: Yes Anes - Eval Final PreProcedure Day of Procedure 11/16/23 10:30 Patient weight: normal Heart: regular rate and rhythm Lungs: decreased breath sounds Airway: Mallampati scale class II Neurological: alert and oriented Last oral intake: >/= 8 hours ASA classification: III Emergent: no Anesthetic plan: proceed Anesthesia type and monitoring: general GIVS and standard monitoring Results Review: All pre-operative results and documents have been reviewed as part of the pre-operative evaluation. Informed Consent: The patient's anesthetic plan and its attendant risks and benefits were discussed with the patient/family/POA. Questions were solicited and answers provided to the satisfaction of the patient/family/POA.
[2023-11-16 10:54] VITALS: BP 115/61; PULSE 74; RESP 16; O2SAT 97
[2023-11-16 11:04] VITALS: BP 128/80; PULSE 65; RESP 16; O2SAT 99
[2023-11-16 11:14] VITALS: BP 141/83; PULSE 60; RESP 14; O2SAT 100
--- NOTE | 2023-11-16 11:34 | WPDANESPN ---
Anes - Prog Note Post-Op Date/Time: 11/16/23 11:34 Cardiovascular status: normal Respiratory status: normal Airway patency: baseline Mental status: baseline Post-Op hydration status: normal Vital Signs: Last Vital Signs Temp 36.7 C 11/16/23 09:41 Pulse 60 11/16/23 11:14 Resp 14 11/16/23 11:14 BP 141/83 H 11/16/23 11:14 Pulse Ox 100 11/16/23 11:14 O2 Del Method Room Air 11/16/23 11:14 Pain Score (VAS): 0 I/O: Intake & Output 11/15/23 11/16/23 11/16/23 23:59 07:59 15:59 Intake Total 600 Balance 600 Patient Feedback: Patient satisfied with anesthetic care.
== END 2023-11-16 11:27 | disposition home or self-care (01) ==
PROVIDERS: PCP Family Medicine; Visit Provider Internal Medicine Gastroenterology
PROC: 0DJD8ZZ Inspection of Lower Intestinal Tract, Via Natural or Artificial Opening Endoscopic (ICD-10-PCS; CPT 45378; principal; 2023-11-16 10:30)
DX: Z12.11 Encounter for screening for malignant neoplasm of colon (principal); K57.30 Diverticulosis of large intestine without perforation or abscess without bleeding; K64.8 Other hemorrhoids
CPT/HCPCS: G0121

== ENCOUNTER 2024-11-28 18:00 | Observation (INO) | payer MEDICARE, SELFPAY ==
--- NOTE | ~2024-11-28 | XR_ITS ---
INTRAOPERATIVE FLUOROSCOPY: CLINICAL HISTORY: 64 years old Male; CYSTO LT SPECIAL PROCEDURE COMMENTS: Limited intraoperative fluoroscopy of the pelvis and left flank was performed. CUMULATIVE DOSE: 6.5 mGy FLUOROSCOPY TIME: 16.5 seconds FINDINGS/IMPRESSION: Please refer to operative note for further details. Reviewed, dictated and finalized at location A.
--- NOTE | ~2024-11-28 | CT_ITS ---
CT abdomen pelvis wo con Ordering provider: Beverly Zapata History: 64 years Male with . left side and suprapubic abd pain, hx kidney stone . Comparison: April 12, 2021 Technique: CT abdomen and pelvis without IV and without oral contrast. Automated exposure control and iterative reconstruction technique were employed. The dose-length product was 226.88 mGy-cm. Findings: VISUALIZED LOWER CHEST: Dependent atelectatic changes. UPPER ABDOMINAL ORGANS: Liver: Normal. Gallbladder: Normal. Spleen: Normal. Stomach/duodenum: Sliding hiatus hernia. Pancreas: Normal. Adrenals: Normal. Kidneys: Stone in the left lower ureter measuring 6 mm. Left moderate hydronephrotic changes seen. St ones in the left kidney lower pole are also noted with the largest measures 5 mm. Tiny stone in the right kidney mid pole is noted. PELVIC ORGANS: The bladder is underfilled with thickened wall. Evaluation for cystitis advised. BOWEL AND MESENTERY: Colon: No evidence of diverticulitis or appendicitis. Small Bowel: Normal. No obstruction. Peritoneum/mesentery: No free air or free fluid. No mesenteric lymphadenopathy. RETROPERITONEUM: Mild atheromatous disease of the abdominal aorta. No retroperitoneal lymphadenopat hy. MUSCULOSKELETAL: Superficial soft tissues: Small fat-containing umbilical hernia. Otherwise, The superficial soft tiss ues are normal. Bones: Age appropriate degenerative changes of the spine. Sclerotic right iliac bone is noted. Infect ion versus primary malignancy versus metastasis disease cannot be excluded. Osteoarthritic changes a lso cannot be excluded. Further evaluation advised. Bilateral hip osteoarthritic changes. Minimal ant erolisthesis at the level of L4-L5 is also noted IMPRESSION: 1. Left lower ureteric stone with left moderate hydronephrotic changes. 2. Bilateral renal stones. 3. Sliding hiatus hernia. 4. Sclerotic area in the right iliac bone. Further evaluation is advised. Reviewed, dictated and finalized at location A.
--- NOTE | ~2024-11-28 | XR_ITS ---
Exam: Abdomen 1V HISTORY: post cysto/stone retrieval (left) COMPARISON: Reference is made to a CT examination of the abdomen and pelvis dated 11/28/2024 TECHNIQUE: Supine images of the abdomen FINDINGS: Bowel gas pattern is non-obstructive. There is no free air or deep sulci. No radiopaque density is identified within the left hemipelvis corresponding to the location of patie nt's 6 mm distal ureteral calculus. The left renal collecting system is faintly opacified with contrast. Redemonstration of a 5.3 mm calculus projecting over the lower pole of the left kidney. The additional stone within the interpolar region is not demonstrated on the plain film evaluation. IMPRESSION: Interval resolution of the distal left ureteral stone. Redemonstration of the 5.3 mm calculus projecting over the lower pole of the left kidney Reviewed, dictated and finalized at location A. IMPRESSION: Interval resolution of the distal left ureteral stone. Redemonstration of the 5.3 mm calculus projecting over the lower pole of the le ft kidney
--- OUTSIDE RECORDS SUMMARY | 2024-11-28 18:03 | XMS_ITS | Clinical Summary ---
Author Organization [facility] Address [address] [facility] [place] [address] Care Team Providers Care Plaster Molder Name Role Phone Nicholas Ramirez MD Primary Care Provider [phone] Source Comments [facility],non-owned Affiliates and Associated Physician Practices is amultiple site organization consisting of ambulatory clinics and hospital sitesin [place], [place], [place] and [place]. This disclosure is being madepursuant to the Care Everywhere program and may not contain all information available regarding this patient. Last updated 18.[facility] Allergies No known active allergies Medications * Be aware that medications may not be up to date on this document. Alwaysverify current medications with the patient. hydrOXYzine hcl (ATARAX) 25 MG tablet Take 1 tablet by mouth 4 times daily as needed 15 tablet 05/22/2020 Active traZODone (DESYREL) 50 MG tablet Take 1 tablet by mouth nightly as needed for Insomnia 15 tablet 05/22/2020 Active ondansetron, disintegrating, (ZOFRAN ODT) 4 MG tablet Dissolve 1 tablet under the tongue every 6 hours as needed for Nausea/Vomiti ng Allow tablet to dissolve on the tongue 15 tablet 05/22/2020 Active methocarbamol (ROBAXIN) 750 MG tablet Take 1 tablet by mouth every 6 hours as needed for Muscle Spasms 15 tablet 05/22/2020 Active thiamine 100 MG Take 1 tablet by mouth once daily 30 tablet 05/23/2020 Active Active Problems Problem Noted Date Diagnosed Date Alcohol withdrawal syndrome with complication Social History Tobacco Use Types Packs/Day Years Used Date Smoking Tobacco: Former Cigarettes Smokeless Tobacco: Never Alcohol Use Standard Drinks/Week Comments Yes 4 (1 standard drink = 0.6 oz pur e alcohol) tequila AUDIT-C Answer Date Recorded Q1: How often do you have a drink containing alcohol? 4 or more times a week 05/20/2020 Q2: How many drinks containi ng alcohol do you have on a typical day when you are drinking? 5 or 6 0 Q3: How often do you have si x or more drinks on one occasion? Daily or almost daily 05/20/2020 Sex and Gender Information Value Date Recorded Sex Assigned at Not on file Legal Sex Male 2:43 PM CDT Gender Identity Not on file Sexual Orientation Not on file Last Filed Vital Signs Vital Sign Reading Time Taken Comments Blood Pressure 133/80 05/22/2020 7:47 AM CDT Pulse 78 05/22/2020 7:47 AM CDT Temperature 36.5 C (97.7 F) 05/22/2020 7:47 AM CDT Respiratory Rate 18 05/22/2020 7:47 AM CDT Oxygen Saturation 98% 05/22/2020 7:47 AM CDT Inhaled Oxygen Concentration - - Weight 88.5 kg (195 lb) 05/20/2020 3:46 PM CDT Height 182.9 cm (6') 05/20/2020 3:46 PM CDT Body Mass Index 26.45 05/20/2020 3:46 PM CDT Plan of Treatment Health Maintenance Due Date Last Done Comments COLOGUARD (AGES 45-75) - COL ON CA SCREENING 1958 COLON MONITORING 1958 COLONOSCOPY - COLON CA SCREENING 1958 CT COLONOGRAPHY - COLON CA SCREENING 1958 Colorectal Cancer Screening 1958 FIT - COLON CA SCREENING 1958 FLEX SIG - COLON CA SCREENING 1958 LIPID TESTING 1958 MEDICARE AWV 12 MONTHS 1958 DTAP/TDAP/TD VACCINES (1 - Tdap) 1977 PNEUMOCOCCAL VACCINE 50+ (1 of 1 - PCV) 2008 ZOSTER VACCINE (1 of 2) 2008 AAA SCREENING 2023 COVID-19 VACCINE (1 - 2023-2 5 season) 2024 DEPRESSION SCREENING 08/15/2024 INFLUENZA VACCINE (Season Ended) 2025 Respiratory Syncytial Virus (RSV) Vaccine Pt: or over 60 yrs (1 - 1-dose 75+ series) 2033 HEPATITIS C SCREENING Completed 05/20/2020 HEPATITIS B VACCINE Aged Out No longe r eligible based on patient's age to complete this topic HIB VACCINE Aged Out No longer eligi ble based on patient's age to complete this topic HPV VACCINE Aged Out No longer eligi ble based on patient's age to complete this topic MENINGOCOCCAL (Group B) VACC INE SHARED DECISION-MAKING Aged Out No longer eligibl e based on patient's age to complete this topic MENINGOCOCCAL GROUPS A/C/Y/W VACCINE Aged Out No longer eligible b ased on patient's age to complete this topic Procedures Procedure Name Priority Date/Time Associated Diagnosis Comments HEPATITIS SCREEN ACUTE Routine 05/20/2020 4:30 PM CDT from Last 3 Months or Most Recently Relevant to Health Maintenance Results * (ABNORMAL) HEPATITIS SCREEN ACUTE (05/20/2020 4:30 PM CDT) Pathologist [facility] HAV Antibody IgM Non Reactive Non Reactive 05/20/2020 5:55 PM CDT [facility] HBsAg Non Reactive Non Reactive 05/20/2020 5:55 PM CDT [facility] HBc Antibody IgM Non Reactive Non Reactive 05/20/2020 5:55 PM CDT [facility] HCV Antibody Screen REACTIVE(A) Non Reactive 05/20/2020 5:55 PM CDT [facility] Blood BLOOD SPECIMEN / Unknown Venipuncture / Unknown 05/20/2020 4:30 PM CDT 05/20/2020 4:34 PM CDT Narrative [facility] - 05/20/2020 5:55 PM CDT A reactive result is consistent with current HCV infection or past HCV infection that has been resolved. Reflex testing to Hepatitis C Virus RNA Quantitative, Real Time PCR will be performed. See separate report. Kade Geronimo MD LAB - CHEMISTRY ORDERABLES Final Result [facility] [address] [place] [address] from Last 3 Months or Most Recently Relevant to Health Maintenance Insurance MEDICARE MEDICARE SUPPLEMENT PAYOR GENERIC Advance Directives * Full Code (Latest Code Status on File) Date Activated Date Inactivated Comments 05/20/2020 3:21 PM 05/22/2020 4:09 PM Care Teams Plaster Molder Relationship Specialty Start Date End Date Nicholas Ramirez MD [address] [place] [id number] PCP - General Family Medicine 05/21/20
--- OUTSIDE RECORDS SUMMARY | 2024-11-28 18:03 | XMS_ITS | Clinical Summary ---
Author Organization [facility] Address [address] [place] [address] Phone Care Team Providers Care Air Pollution Inspector Name Role Phone Unavailable Primary Care Provider Unavailabl e Social History Tobacco Use Types Packs/Day Years Used Date Smoking Tobacco: Never Assessed Sex and Gender Information Value Date Recorded Sex Assigned at Not on file Legal Sex Male 9:55 AM CDT Gender Identity Not on file Sexual Orientation Not on file Plan of Treatment Not on file Insurance MEDICARE
--- OUTSIDE RECORDS SUMMARY | 2024-11-28 18:03 | XMS_ITS | Referral Summary ---
Author Organization [facility] Address [address] [place] [address] Care Team Providers Care Transformer Mechanic Name Role Phone No, Physician Primary Care Provider [phone] Encounters Date Type Department Care Team Description 11/27/2024 Telephone [facility] Advanced Medicine Radiation Oncology [address] [facility] [place] [address] Trish Young RN from Last 3 Months Allergies No known active allergies Medications ALPRAZolam (XANAX) 1 mg tablet 02/16/2017 Active ergocalciferol (VITAMIN D) 50,000 unit capsule TAKE 1 CAPSULE ONCE monthly 08/10/2017 Active HYDROcodone-silvana taminophen (NORCO) 7.5-325 mg per tablet 0 11/10/2018 Activ e zolpidem (AMBIEN) 10 mg tablet 02/16/2017 Active Active Problems No known active problems Resolved Problems Problem Noted Date Diagnosed Date Resolved Date Malignant neoplasm of prostate 12/27/2016 03/27/2018 Cancer Staging:Pathologic stage from 09/14/2013:Stage IV(T2c, N0, M1b, PSA: Less than 10, [place] 7) - Signed by Joana Harvey NP on 03/27/2018 Social History Tobacco Use Types Packs/Day Years Used Date Smoking Tobacco: Never Smokeless Tobacco: Never Tobacco Cessation:Counseling Given: No Personal Safety Answer Date Recorded Getting School Help Needed Not on file 10/08 Sex and Gender Information Value Date Recorded Sex Assigned at Not on file 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 Gender Identity Not on file Sexual Orientation Not on file Last Filed Vital Signs Vital Sign Reading Time Taken Comments Blood Pressure - - Pulse - - Temperature - - Respiratory Rate - - Oxygen Saturation - - Inhaled Oxygen Concentration - - Weight 88.3 kg (194 lb 9.6 oz) 06/05/2024 10:38 AM CDT Height 184.2 cm (6' 0.5 ) 03/20/2019 12 :16 PM CDT with shoes on Body Mass Index 26.03 03/20/2019 12:16 PM CDT Plan of Treatment Not on file Procedures Procedure Name Priority Date/Time Associated Diagnosis Comments PSA DIAGNOSTIC Routine 05/31/2024 7:37 AM CDT Malignant neoplasm of prostate (HCC) from Last 3 Months or Most Recently Relevant to Health Maintenance Results * PSA diagnostic (05/31/2024 7:37 AM CDT) PSA <0.1 0.0 - 4.0 ng/mL [facility] - 01 Comment: [place] ECLIA methodology. According to the [place] [employer], Serum PSA should decrease and remain at undetectable levels after radical prostatectomy. The AUA defines biochemical recurrence as an initial PSA value 0.2 ng/mL or greater followed by a subsequent confirmatory PSA value 0.2 ng/mL or greater. Values obtained with different assay methods or kits cannot be used interchangeably. Results cannot be interpreted as absolute evidence of the presence or absence of malignant disease. Blood 05/31/2024 7:37 AM CDT 05/31/2024 Narrative [facility] - 06/02/2024 7:11 AM CDT Performed at: [address] [place] [id number] Television Engineer: Chandler Hendricks PhD, Phone: [phone] us Joana Harvey NP LAB BLOOD ORDERABLES Final Result [facility] - 01 from Last 3 Months or Most Recently Relevant to Health Maintenance Insurance [facility] H[facility]/PP[facility] Address: [address] [address] [place] [address] MEDICARE COMMERCIAL GENERIC MEDICARE COMMERCIAL GENERIC [place] [id number] MEDICARE [employer] [place] [id number] Care Teams Transformer Mechanic Relationship Specialty Start Date End Date No, Physician PCP - General 12/09/20
--- OUTSIDE RECORDS SUMMARY | 2024-11-28 18:03 | XMS_ITS | Encounter Summary ---
Author Organization [facility] Address [address] [place] [address] Care Team Providers Care Wildlife Control Agent Name Role Phone No, Physician Primary Care Provider [phone] Encounter Details Date Type Department Care Team (Late st Contact Info) Description 11/27/2024 Telephone [facility] Advanced Medicine Radiation Oncology [address] [facility] [place] [address] Trish Young RN Social History Tobacco Use Types Packs/Day Years Used Date Smoking Tobacco: Never Smokeless Tobacco: Never Personal Safety Answer Date Recorded Getting School Help Needed Not on file 10/08 Sex and Gender Information Value Date Recorded Sex Assigned at Not on file 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 He went to PCP who completed a UA. Per pt, came back as negative. Patient reports nocturia and noticed pain after urinating. PCP ordered scan for kidney stone butwanted patient to have PSA checked. PSA order sent to [facility]. Encouraged patient to continue following up with PCP and urologist. documented in this encounter Plan of Treatment Scheduled Orders Name Type Priority Associated Diagnoses Orde r Schedule PSA, total and free Lab Routine Prostate CA (HCC) Expected: 11/27/2024, Expires: 11/27/2025 documented as of this encounter Visit Diagnoses Diagnosis Prostate CA (HCC)- Primary Malignant neoplasm of prostate documented in this encounter Care Teams Wildlife Control Agent Relationship Specialty Start Date End Date No, Physician PCP - General 12/09/20 documented as of this encounter
--- OUTSIDE RECORDS SUMMARY | 2024-11-28 18:03 | XMS_ITS | Encounter Summary ---
Author Organization [facility] Address [address] [place] [address] Phone Care Team Providers Care Director Gift Name Role Phone Nicholas Ramirez MD Primary Care Provider [phone] No, Physician Primary Care Provider [phone] Encounter Details Date Type Department Care Team (Late st Contact Info) Description 06/22/2017 Orders Only [facility] ProviderAkash MD [address] [place] [id number] Social History Tobacco Use Types Packs/Day Years Used Date Smoking Tobacco: Never Sex and Gender Information Value Date Recorded Sex Assigned at Not on file Legal Sex Male 6:57 AM CERTIFIED MEDICAL TECHNICIAN ASSISTANT Gender Identity Not on file Sexual Orientation Not on file documented as of this encounter Plan of Treatment Not on file documented as of this encounter Procedures Procedure Name Priority Date/Time Associated Diagnosis Comments GENERAL RADIOLOGY REPORT 06/22/2017 documented in this encounter Results * GENERAL RADIOLOGY REPORT (06/22/2017) Anatomical Region Laterality Modality Radiographic Adrienne ging Narrative 06/22/2017 Ordered by an unspecified provider. us Historical Provider MD DIMAS XR PROCEDURES Final R esult documented in this encounter Visit Diagnoses Not on filedocumented in this encounter Care Teams Director Gift Relationship Specialty Start Date End Date Nicholas Ramirez MD [address] [place] [id number] PCP - General 10/22/16 12/08/20 No, Physician PCP - General 12/09/20 documented as of this encounter
--- OUTSIDE RECORDS SUMMARY | 2024-11-28 18:03 | XMS_ITS | Clinical Summary ---
Author Organization [facility] Healthcare Address [address] [place] [address] Care Team Providers Care Family Sociologist Name Role Phone No, Physician Primary Care Provider [phone] Allergies No known active allergies Medications ALPRAZolam [...] IV(T2c, N0, M1b, PSA: Less than 10, [place] 7) - Signed by Joana Harvey NP on 03/27/2018 Encounters Date Type Department Care Team Description 11/27/2024 Telephone [facility] Advanced Medicine Radiation Oncology [address] 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 Gender Identity Not on file Sexual Orientation Not on file Obstetrics History Last Filed Vital Signs Vital Sign Reading [...] 03/20/2019 12:16 PM CDT Plan of Treatment Health Maintenance Due Date Last Done Comments Colon Cancer Screening-Colonoscopy 1958 Depression Screening 1958 Fall Risk Assessment 1958 Hepatitis C Screening 1958 DTaP/Tdap/Td Vaccine (1 - Tdap) 1969 Hepatitis B Screening 1976 Pneumococcal vaccine 65+ (1 of 1 - PCV) 2008 Zoster Vaccine (1 of 2) 2008 Well Visit 65+ 2023 Covid-19 Vaccine (3 - 2023-2 5 season) 2024 01/19/2021, 12/29/2020 Influenza Vaccine (Season Ended) 2025 Prostate Cancer Screening-PSA 05/31/2026, 06/06/2023, 05/31/2022, Additional history exists Procedures Procedure Name Priority Date/Time Associated Diagnosis Comments PSA DIAGNOSTIC Routine 05/31/2024 7:37 AM CDT Malignant neoplasm of prostate (HCC) from Last 3 Months or Most Recently Relevant to Health Maintenance Results * PSA diagnostic (05/31/2024 7:37 AM CDT) PSA <0.1 0.0 - 4.0 ng/mL [facility] - 01 Comment: [place] ECLIA methodology. According to the [place] [employer], Serum PSA should decrease and [...] - 06/02/2024 7:11 AM CDT Performed at: - [address] [id number] Building Drafting Officer: Chandler Hendricks PhD, Phone: [phone] us Joana Harvey COMMUNICATION TECHNICIAN LAB BLOOD ORDERABLES Final Result [facility] - from Last 3 Months or Most Recently Relevant to Health Maintenance Insurance [facility] H[facility]/PPO Address: [address] [address] [place] [address] MEDICARE COMMERCIAL GENERIC MEDICARE COMMERCIAL GENERIC MEDICARE [employer] [place] Care Teams Family Sociologist Relationship Specialty Start Date End Date No, Physician PCP - General 12/09/20
--- OUTSIDE RECORDS SUMMARY | 2024-11-28 18:03 | XMS_ITS | Clinical Summary ---
Author Organization [facility] Address [address] [place] [address] Care Team Providers Care Method Consultant Name Role Phone Nicholas Ramirez MD Primary Care Provider [phone] Social History Tobacco Use Types Packs/Day Years Used Date Smoking Tobacco: Never Assessed Sex and Gender Information Value Date Recorded Sex Assigned at Not on file Legal Sex Male 7:53 PM CDT Gender Identity Not on file Sexual Orientation Not on file Plan of Treatment Health Maintenance Due Date Last Done Comments Colorectal Cancer Screening Colonoscopy (10 Years) 1958 Hepatitis C 1976 DTaP, Tdap and Td Vaccines ( 1 - Tdap) 1977 Zoster Vaccines (1 of 2) 2008 Pneumococcal Vaccine: 50+ Ye ars (1 of 1 - PCV) 2023 COVID-19 Vaccine (1 - 2023-2 5 season) 2024 RSV Immunization or 60+ Years (1 - 1-dose 75+ series) 2033 Meningococcal B Vaccine Aged Out No l onger eligible based on patient's age to complete this topic Meningococcal Vaccine Aged Out No anastacio rebecca eligible based on patient's age to complete this topic RSV Immunizations Under 20 Months Aged Out No longer eligible based on patient's age to complete this topic Care Teams Method Consultant Relationship Specialty Start Date End Date Nicholas Ramirez MD [address] [place] [address] PCP - General 05/09/13
[2024-11-28 18:12] VITALS: BP 167/102; PULSE 87; RESP 16; TEMP 36.2; O2SAT 96
--- NOTE | 2024-11-28 18:16 | ED_ITS ---
HPI - Male Genitourinary General Chief complaint: Urogenital-Male <Beverly Zapata PA-C - Last Filed: 11/28/24 18:16> Stated complaint: Sent for Ct-kidney stones <Beverly Zapata PA-C - Last Filed: 11/28/24 18:16> Time Seen by Provider: 11/28/24 18:49 <Beverly Zapata PA-C - Last Filed: 11/28/24 18:16> Focused HPI: 64-year-old male with history of hernia repair and prostatectomy presents to the emergency department for a CT scan to rule out a kidney stone per his PCP. Patient states for the past 3 weeks he has had pain in the suprapubic region and left side of his abdomen. He has a history of kidney stones and states this feels similar, however the pain now does not radiate into his flank. He had an outpatient UA done a few days ago which was ?negative?. States pain is persisted so his PCP advised in the come to the ED for CT scan. He denies fever, nausea or vomiting, hematuria or dysuria. GENERAL: Well-appearing, well-nourished, and in no acute distress. HEAD: Normocephalic, atraumatic. CHEST: Clear to auscultation. ?No respiratory distress. HEART: Regular rate and rhythm.? NEURO: ?Alert and oriented x3. Patient screened in triage and initial orders placed.? ?Additional care and disposition to be based upon?diagnostic testing and treatment. <Beverly Zapata PA-C - Last Filed: 11/28/24 18:16> Focused HPI: 64-year-old male with history of hernia repair and prostatectomy presents to the emergency department for a CT scan to rule out a kidney stone per his PCP. Patient states for the past 3 weeks he has had pain in the suprapubic region and left side of his abdomen. He has a history of kidney stones and states this feels similar, however the pain now does not radiate into his flank. He had an outpatient UA done a few days ago which was ?negative?. States pain is persisted so his PCP advised in the come to the ED for CT scan. He denies fever, nausea or vomiting, hematuria or dysuria. GENERAL: Well-appearing, well-nourished, and in no acute distress. HEAD: Normocephalic, atraumatic. CHEST: Clear to auscultation. ?No respiratory distress. HEART: Regular rate and rhythm.? NEURO: ?Alert and oriented x3. Patient screened in triage and initial orders placed.? ?Additional care and disposition to be based upon?diagnostic testing and treatment. <CHRISTOPHER Garcia Last Filed: 11/28/24 22:41> Source: patient <CHRISTOPHER Garcia Last Filed: 11/28/24 22:41> Mode of arrival: ambulatory <CHRISTOPHER Garcia Last Filed: 11/28/24 22:41> Limitations: no limitations <CHRISTOPHER Garcia Last Filed: 11/28/24 22:41> History of Present Illness HPI Narrative: Agree with above HPI. Denies history of diverticulitis. Denies diarrhea, constipation. Has not taken anything for the pain. <CHRISTOPHER Garcia Last Filed: 11/28/24 22:41> Related Data Home medications: Home Medications ?Medication ?Instructions ?Recorded ?Confirmed ?Last Taken ?Type omeprazole 20 mg delayed 20 mg PO DAILY PRN Indigestion 04/01/21 11/28/24 11/25/24 History release,disintegrating tablet <CHRISTOPHER Nevarez Last Filed: 11/28/24 18:16> Allergies/Adverse reactions: Allergies Allergy/AdvReac Type Severity Reaction Status Date / Time No Known Allergies Allergy Verified 11/29/24 13:37 <CHRISTOPHER Nevarez Last Filed: 11/28/24 18:16> Review of Systems 2 Review of Systems: All systems reviewed & are unremarkable except as noted in HPI. <CHRISTOPHER Garcia Last Filed: 11/28/24 22:41> All systems reviewed & are unremarkable except as noted in HPI and below < CHRISTOPHER Garcia Last Filed: 11/28/24 22:41> PMFSH Past Medical History Medical History: Medical History (Updated 11/29/24 @ 09:01 by Ana Paula Coleman TELEPHONE CLERK TELEGRAPH OFFICE) Mixed hyperlipidemia 10/2024 triglycerides 163 total cholesterol 235 LDL 169 meal dL 30 HDL 36 History of hepatitis C Erectile dysfunction Renal calculi Acid reflux Cancer of prostate With history of prostatectomy and radiation treatments Arthritis Anxiety <Beverly Zapata PA-C - Last Filed: 11/28/24 18:16> Surgical History Surgical History: Surgical History (Updated 11/29/24 @ 03:37 by Gerri Bernal DO) History of right inguinal hernia repair H/O tooth extraction Pt had all teeth surgically extracted Mar 2022. H/O prostatectomy (~2015) H/O vasectomy <Beverly Zapata PA-C - Last Filed: 11/28/24 18:16> Family History Family History: Family History Father Family history of lung cancer Father Alcoholism Bone cancer Mesothelioma Depression Hypertension Mother Bone cancer Depression Sibling Astrocytoma brain tumor Other Family history of tuberculosis <Beverly Zapata PA-C - Last Filed: 11/28/24 18:16> Social History Social History: Social History (Updated 11/29/24 @ 03:40 by Gerri Bernal DO) Social History: The patient lives with his of 41 years. They have 5 daughters. He is retired but used to work for [employer] works for a [employer]. He briefly smoked but quit over 40 years ago. He only rarely drink alcohol in small amounts and does not drink currently. He denies illicit substance use. Code status: Full code Surrogate decision maker: Smoking packs per day: 1 Smoking cigarettes per day: 20.0 Years smoked: 5 Smoking pack-years: 5.00 Smoking status: Former smoker Tobacco type: cigarettes Second hand tobacco smoke exposure: No Smoking end date: 11/28/78 Alcohol intake: former Alcohol use details: seldom; socially Substance use: never Substance use type: does not use Do You Feel Safe in your Home?: Yes Lack of Transportation: No Lack of Food: Never True Current Housing: I Have Housing Concerned About Future Housing: No Difficulty Paying Gas/Electric Bills: No Difficulty Paying for Meds: No Currently Unemployed: No Education: High School Diploma/GED Difficulty w/ Childcare or Family Care: No Living arrangements: with family Additional living arrangements comments: & CHILDREN Spiritual care concerns: No Agree to blood products: Yes <Beverly Zapata PA-C - Last Filed: 11/28/24 18:16> Exam 2 Narrative: GENERAL: Well appearing, well-nourished, non-toxic, in no acute distress. HEAD: Normocephalic, atraumatic. RESPIRATORY: Airway patent, respirations nonlabored. Clear to auscultation bilaterally, no rales, rhonchi, wheezing. CARDIOVASCULAR: Regular rate and rhythm without murmurs, rubs, or gallops. ABDOMINAL: Soft, mild tenderness palpation in left lower quadrant/ left lateral lower abdomen. No rebound. Nondistended. Normoactive BS. MUSCULOSKELETAL: Moves all extremities. No gross deformities. SKIN: Warm, dry, normal color. NEURO: A&O X3. Speech clear. Cranial nerves II-XII grossly intact. Steady gait. No ataxic movements. PSYCHIATRIC: Appropriate mood and affect. Normal interaction. <Flor Lim PA-C - Last Filed: 11/28/24 22:41> Course REGIONAL ACCOUNT DIRECTOR/PA Physician Supervision I agree with midlevel documentation; I performed the medical decision making component of this evaluation. <Stella Rodriguez MD - Last Filed: 12/02/24 10:57> Vital Signs Vital signs: Vital Signs Temperature 97.1 F L 11/28/24 18:12 Pulse Rate 87 11/28/24 18:12 Respiratory Rate 16 11/28/24 18:12 Blood Pressure 167/102 H 11/28/24 18:12 Pulse Oximetry 96 11/28/24 18:12 Temperature 97.7 F 11/29/24 18:00 Pulse Rate 84 11/29/24 18:00 Respiratory Rate 20 11/29/24 18:00 Blood Pressure 128/67 11/29/24 18:00 Pulse Oximetry 97 11/29/24 18:00 Oxygen Delivery Room Air 11/29/24 16:00 Oxygen Flow Rate 8 11/29/24 15:13 <Beverly Zapata PA-C - Last Filed: 11/28/24 18:16> Vital Signs Temperature 97.1 F L 11/28/24 18:12 Pulse Rate 87 11/28/24 18:12 Respiratory Rate 16 11/28/24 18:12 Blood Pressure 167/102 H 11/28/24 18:12 Pulse Oximetry 96 11/28/24 18:12 Temperature 97.7 F 11/29/24 18:00 Pulse Rate 84 11/29/24 18:00 Respiratory Rate 20 11/29/24 18:00 Blood Pressure 128/67 11/29/24 18:00 Pulse Oximetry 97 11/29/24 18:00 Oxygen Delivery Room Air 11/29/24 16:00 Oxygen Flow Rate 8 11/29/24 15:13 <Flor Lim PA-C - Last Filed: 11/28/24 22:41> Vital Signs Temperature 97.1 F L 11/28/24 18:12 Pulse Rate 87 11/28/24 18:12 Respiratory Rate 16 11/28/24 18:12 Blood Pressure 167/102 H 11/28/24 18:12 Pulse Oximetry 96 11/28/24 18:12 Temperature 97.7 F 11/29/24 18:00 Pulse Rate 84 11/29/24 18:00 Respiratory Rate 20 11/29/24 18:00 Blood Pressure 128/67 11/29/24 18:00 Pulse Oximetry 97 11/29/24 18:00 Oxygen Delivery Room Air 11/29/24 16:00 Oxygen Flow Rate 8 11/29/24 15:13 <Stella Rodriguez MD - Last Filed: 12/02/24 10:57> MDM - Male Genitourinary MDM Narrative Medical decision making narrative: Patient presented to ED with left lower abdominal pain has been intermittent over the past couple of weeks. Concerned for kidney stones. Vital signs stable upon arrival. Patient in no acute distress. Laboratory studies are unremarkable. No leukocytosis or anemia. Stable kidney function. UA with trace leuks, no other signs of infection. No hematuria. CT of abdomen/pelvis was obtained and showing 6mm distal ureteral stone. Moderate hydronephrosis. Discussed lab and imaging findings with patient. Pain is relatively controlled at this time, but has waves of intermittent worsening. Discussed case with Dr. Valiente, urology, advised can f/u as OP or admission overnight with surgery tomorrow, NPO at midnight, strain urine, flomax. Patient would prefer to stay and receive definitive stone treatment. Will discuss with hospitalist. Discussed case with Dr. Bernal, hospitalist, accepted patient for admission. Patient in agreement with plan and admission. Prn pain meds ordered. <Flor Lim PA-C - Last Filed: 11/28/24 22:41> Medical Records Attestation: I reviewed the patient's medical records. <Flor Lim PA-C - Last Filed: 11/28/24 22:41> Lab Data Attestation: I reviewed the patient's lab results. <Flor Lim PA-C - Last Filed: 11/28/24 22:41> Result diagrams: 11/28/24 18:55 11/28/24 18:55 <Beverly Zapata PA-C - Last Filed: 11/28/24 18:16> Labs: Lab Results 11/28/24 Range/Units 18:55 WBC 5.8 (4.5-10.0) K/mm3 RBC 5.09 (4.6-6.20) M/mm3 Hgb 13.6 L (14.0-18.0) g/dL Hct 44.3 (42.0-52.0) % MCV 87.0 (80-100) fl MCH 26.7 (26-34) pg MCHC 30.7 L (32-36) g/dl RDW 13.2 (11.5-14.5) % Plt Count 186 (150-375) k/mm3 MPV 10.5 H (7.4-10.4) fl Immature Gran % (Auto) 0.3 (0-0.5) % Neut % (Auto) 52.8 (45.5-73.1) % Lymph % (Auto) 28.5 (18.3-44.2) % [place] % (Auto) 14.4 H (2.6-8.5) % Eos % (Auto) 3.3 (0-4.4) % Baso % (Auto) 0.7 (0.2-1.2) % Lymph # (Auto) 1.66 (0.9-3.2) K/mm3 [place] # (Auto) 0.8 H (0.1-0.6) K/mm3 Eos # (Auto) 0.2 (0-0.3) K/mm3 Baso # (Auto) 0.0 (0.0-0.1) K/mm3 Abs Immat Gran (auto) 0.02 (0.00-0.031) K/mm3 Absolute Neuts (auto) 3.1 (1.3-6.7) K/mm3 Absolute Nucleated RBC 0.000 (0.0-0.012) K/mm3 Nucleated RBC % 0.0 (0.0-0.2) % Sodium 139 (137-145) mmol/L Potassium 3.8 (3.4-5.0) mmol/L Chloride 106 (98-107) mmol/L Carbon Dioxide 26 (22-30) mmol/L Anion Gap 7 (4-12) mmol/L BUN 18 (9-20) mg/dL Creatinine 0.92 (0.7-1.3) mg/dL Estim Creat Clear Calc 76 ml/min Estimated GFR > 60 (59 - ) Glucose 88 (65-110) mg/dL Calcium 9.0 (8.4-10.2) mg/dL Total Bilirubin 0.6 (0.2-1.3) mg/dL AST 23 (17-59) U/L ALT 20 (6-50) U/L Alkaline Phosphatase 76 (38-126) U/L Total Protein 7.0 (6.3-8.2) g/dL Albumin 4.0 (3.5-5.1) g/dL Lipase 48 (23-300) U/L Urine Color Yellow (Yellow) Urine Appearance Clear (Clear) Urine pH 5.5 (5.0-9.0) Ur Specific [place] 1.016 (1.001-1.035) Urine Protein Negative (Negative) mg/dL Urine Glucose (UA) Negative (Negative) mg/dL Urine Ketones Negative (Negative) mg/dL Ur Blood (Man) Negative (Negative) Urine Nitrate Negative (Negative) Urine Bilirubin Negative (Negative) Urine Urobilinogen 1.0 (<2.0) mg/dL Leukocyte Esterase Rfl Trace H (Negative) ALEJANDRINA/UL Urine RBC 0-2 (0-2) /hpf Urine WBC 0-5 (0-3) /hpf Ur Squamous Epith Cells None seen (Few) /hpf Urine Bacteria None seen /hpf Urine Casts 0-2 <Beverly Zapata PAGiorgioC - Last Filed: 11/28/24 18:16> Lab Results 11/28/24 Range/Units 18:55 WBC 5.8 (4.5-10.0) K/mm3 RBC 5.09 (4.6-6.20) M/mm3 Hgb 13.6 L (14.0-18.0) g/dL Hct 44.3 (42.0-52.0) % MCV 87.0 (80-100) fl MCH 26.7 (26-34) pg MCHC 30.7 L (32-36) g/dl RDW 13.2 (11.5-14.5) % Plt Count 186 (150-375) k/mm3 MPV 10.5 H (7.4-10.4) fl Immature Gran % (Auto) 0.3 (0-0.5) % Neut % (Auto) 52.8 (45.5-73.1) % Lymph % (Auto) 28.5 (18.3-44.2) % [place] % (Auto) 14.4 H (2.6-8.5) % Eos % (Auto) 3.3 (0-4.4) % Baso % (Auto) 0.7 (0.2-1.2) % Lymph # (Auto) 1.66 (0.9-3.2) K/mm3 [place] # (Auto) 0.8 H (0.1-0.6) K/mm3 Eos # (Auto) 0.2 (0-0.3) K/mm3 Baso # (Auto) 0.0 (0.0-0.1) K/mm3 Abs Immat Gran (auto) 0.02 (0.00-0.031) K/mm3 Absolute Neuts (auto) 3.1 (1.3-6.7) K/mm3 Absolute Nucleated RBC 0.000 (0.0-0.012) K/mm3 Nucleated RBC % 0.0 (0.0-0.2) % Sodium 139 (137-145) mmol/L Potassium 3.8 (3.4-5.0) mmol/L Chloride 106 (98-107) mmol/L Carbon Dioxide 26 (22-30) mmol/L Anion Gap 7 (4-12) mmol/L BUN 18 (9-20) mg/dL Creatinine 0.92 (0.7-1.3) mg/dL Estim Creat Clear Calc 76 ml/min Estimated GFR > 60 (59 - ) Glucose 88 (65-110) mg/dL Calcium 9.0 (8.4-10.2) mg/dL Total Bilirubin 0.6 (0.2-1.3) mg/dL AST 23 (17-59) U/L ALT 20 (6-50) U/L Alkaline Phosphatase 76 (38-126) U/L Total Protein 7.0 (6.3-8.2) g/dL Albumin 4.0 (3.5-5.1) g/dL Lipase 48 (23-300) U/L Urine Color Yellow (Yellow) Urine Appearance Clear (Clear) Urine pH 5.5 (5.0-9.0) Ur Specific [place] 1.016 (1.001-1.035) Urine Protein Negative (Negative) mg/dL Urine Glucose (UA) Negative (Negative) mg/dL Urine Ketones Negative (Negative) mg/dL Ur Blood (Man) Negative (Negative) Urine Nitrate Negative (Negative) Urine Bilirubin Negative (Negative) Urine Urobilinogen 1.0 (<2.0) mg/dL Leukocyte Esterase Rfl Trace H (Negative) ALEJANDRINA/UL Urine RBC 0-2 (0-2) /hpf Urine WBC 0-5 (0-3) /hpf Ur Squamous Epith Cells None seen (Few) /hpf Urine Bacteria None seen /hpf Urine Casts 0-2 <Flor Lim PA-C - Last Filed: 11/28/24 22:41> Lab Results 11/28/24 Range/Units 18:55 WBC 5.8 (4.5-10.0) K/mm3 RBC 5.09 (4.6-6.20) M/mm3 Hgb 13.6 L (14.0-18.0) g/dL Hct 44.3 (42.0-52.0) % MCV 87.0 (80-100) fl MCH 26.7 (26-34) pg MCHC 30.7 L (32-36) g/dl RDW 13.2 (11.5-14.5) % Plt Count 186 (150-375) k/mm3 MPV 10.5 H (7.4-10.4) fl Immature Gran % (Auto) 0.3 (0-0.5) % Neut % (Auto) 52.8 (45.5-73.1) % Lymph % (Auto) 28.5 (18.3-44.2) % [place] % (Auto) 14.4 H (2.6-8.5) % Eos % (Auto) 3.3 (0-4.4) % Baso % (Auto) 0.7 (0.2-1.2) % Lymph # (Auto) 1.66 (0.9-3.2) K/mm3 [place] # (Auto) 0.8 H (0.1-0.6) K/mm3 Eos # (Auto) 0.2 (0-0.3) K/mm3 Baso # (Auto) 0.0 (0.0-0.1) K/mm3 Abs Immat Gran (auto) 0.02 (0.00-0.031) K/mm3 Absolute Neuts (auto) 3.1 (1.3-6.7) K/mm3 Absolute Nucleated RBC 0.000 (0.0-0.012) K/mm3 Nucleated RBC % 0.0 (0.0-0.2) % Sodium 139 (137-145) mmol/L Potassium 3.8 (3.4-5.0) mmol/L Chloride 106 (98-107) mmol/L Carbon Dioxide 26 (22-30) mmol/L Anion Gap 7 (4-12) mmol/L BUN 18 (9-20) mg/dL Creatinine 0.92 (0.7-1.3) mg/dL Estim Creat Clear Calc 76 ml/min Estimated GFR > 60 (59 - ) Glucose 88 (65-110) mg/dL Calcium 9.0 (8.4-10.2) mg/dL Total Bilirubin 0.6 (0.2-1.3) mg/dL AST 23 (17-59) U/L ALT 20 (6-50) U/L Alkaline Phosphatase 76 (38-126) U/L Total Protein 7.0 (6.3-8.2) g/dL Albumin 4.0 (3.5-5.1) g/dL Lipase 48 (23-300) U/L Urine Color Yellow (Yellow) Urine Appearance Clear (Clear) Urine pH 5.5 (5.0-9.0) Ur Specific [place] 1.016 (1.001-1.035) Urine Protein Negative (Negative) mg/dL Urine Glucose (UA) Negative (Negative) mg/dL Urine Ketones Negative (Negative) mg/dL Ur Blood (Man) Negative (Negative) Urine Nitrate Negative (Negative) Urine Bilirubin Negative (Negative) Urine Urobilinogen 1.0 (<2.0) mg/dL Leukocyte Esterase Rfl Trace H (Negative) ALEJANDRINA/UL Urine RBC 0-2 (0-2) /hpf Urine WBC 0-5 (0-3) /hpf Ur Squamous Epith Cells None seen (Few) /hpf Urine Bacteria None seen /hpf Urine Casts 0-2 <Stella Rodriguez MD - Last Filed: 12/02/24 10:57> Imaging Data Attestation: I personally reviewed and interpreted this imaging study as follows: < Flor Lim PA-C - Last Filed: 11/28/24 22:41> Radiologist's impression: ITS Impressions Abdomen/Pelvis CT 11/28/24 19:30 IMPRESSION: 1. Left lower ureteric stone with left moderate hydronephrotic changes. 2. Bilateral renal stones. 3. Sliding hiatus hernia. 4. Sclerotic area in the right iliac bone. Further evaluation is advised. <Flor Lim PA-C - Last Filed: 11/28/24 22:41> Discharge Plan Discharge Clinical Impression: Calculus of distal left ureter <Beverly Zapata PA-C - Last Filed: 11/28/24 18:16> Patient Disposition: Still a Patient <CHRISTOPHER Nevarez Last Filed: 11/28/24 18:16> Condition: Stable <CHRISTOPHER Nevarez Last Filed: 11/28/24 18:16>
[2024-11-28 19:03] LABS: Basophils Percent Auto 0.7 % (0.2-1.2); Eosinophils Absolute Auto 0.2 K/mm3 (0-0.3); Eosinophils Percent Auto 3.3 % (0-4.4); Hematocrit 44.3 % (42.0-52.0); Hemoglobin 13.6 g/dL (14.0-18.0); Immature Granulocyte Absolute 0.02 K/mm3 (0.00-0.031); Immature Granulocyte Percent A 0.3 % (0-0.5); Lymphocytes Absolute Auto 1.66 K/mm3 (0.9-3.2); Lymphocytes Percent Auto 28.5 % (18.3-44.2); Mean Corpuscular HGB Conc 30.7 g/dl (32-36); Mean Corpuscular Hemoglobin 26.7 pg (26-34); Mean Platelet Volume 10.5 fl (7.4-10.4); Monocytes Absolute Auto 0.8 K/mm3 (0.1-0.6); Monocytes Percent Auto 14.4 % (2.6-8.5); Neutrophils Absolute Auto 3.1 K/mm3 (1.3-6.7); Neutrophils Percent Auto 52.8 % (45.5-73.1); Platelet Count Result 186 k/mm3 (150-375); Red Blood Count 5.09 M/mm3 (4.6-6.20); Red Cell Distribution Width 13.2 % (11.5-14.5); White Blood Count 5.8 K/mm3 (4.5-10.0)
--- OUTSIDE RECORDS SUMMARY | 2024-11-28 19:14 | XMS_ITS | Clinical Summary ---
Author Organization [facility] Address [address] [place] [address] Phone Care Team Providers Care Datastage Architect Name Role Phone Unavailable Primary Care Provider [...]
--- OUTSIDE RECORDS SUMMARY | 2024-11-28 19:14 | XMS_ITS | Clinical Summary ---
Author Organization [facility] Address [address] [place] [address] Care Team Providers Care Wedger Machine Name Role Phone Nicholas Ramirez MD Primary Care Provider Source Comments [facility],non-owned Affiliates and Associated Physician Practices is amultiple site organization consisting of ambulatory clinics and hospital sitesin [place], [place] and [place]. This disclosure is being madepursuant to the Care Everywhere program and may not contain all information available regarding this patient. Last updated 18.[facility] Allergies No known active allergies Medications * [...] COLON CA SCREENING 1960 LIPID TESTING 1960 DTAP/TDAP/TD VACCINES (1 - Tdap) 1977 PNEUMOCOCCAL VACCINE 50+ (1 of 1 - PCV) 2008 ZOSTER VACCINE (1 of 2) 2008 AAA SCREENING 2023 COVID-19 VACCINE ( - 2023-2 5 season) 2024 DEPRESSION SCREENING [...] SCREEN ACUTE (05/20/2020 4:30 PM CDT) Pathologist [facility] Antibody IgM Non Reactive Non Reactive 05/20/2020 5:55 PM CDT [facility] HBsAg Non Reactive Non Reactive 05/20/2020 5:55 PM CDT [facility] HBc Antibody IgM Non Reactive Non Reactive 05/20/2020 5:55 PM CDT [facility] HCV Antibody Screen REACTIVE(A) Non Reactive 05/20/2020 5:55 PM CDT [facility] Blood BLOOD SPECIMEN / Unknown Venipuncture / Unknown 05/20/2020 4:30 PM CDT 05/20/2020 4:34 PM CDT Narrative [facility] - 05/20/2020 5:55 PM CDT A reactive result is consistent with current HCV infection or past HCV infection that has been resolved. Reflex testing to Hepatitis C Virus RNA Quantitative, Real Time PCR will be performed. See separate report. us Kade Geronimo MD LAB - CHEMISTRY ORDERABLES Final Result [facility] [address] [place] [address] from Last 3 Months or Most Recently Relevant to Health Maintenance Insurance MEDICARE MEDICARE SUPPLEMENT PAYOR GENERIC Advance Directives * Full Code (Latest Code Status on File) Date Activated Date Inactivated Comments 05/20/2020 3:21 PM 05/22/2020 4:09 PM Care Teams Wedger Machine Relationship Specialty Start Date End Date Nicholas Ramirez MD [address] [place] [id number] PCP - General Family Medicine 05/21/20
--- OUTSIDE RECORDS SUMMARY | 2024-11-28 19:14 | XMS_ITS | Encounter Summary ---
Author Organization [facility] Address [address] [place] [address] Phone Care Team Providers Care Dental Office Receptionist Name Role Phone Nicholas aRmirez MD Primary Care Provider [phone] No, Physician Primary Care Provider Encounter Details Date Type Department Care Team (Late st Contact Info) Description 06/22/2017 Orders Only [facility] ProviderAkash MD [address] [place] [id number] Social History Tobacco Use Types Packs/Day Years Used Date Smoking Tobacco: Never Sex and Gender Information Value Date Recorded Sex Assigned at Not on file Legal 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
--- OUTSIDE RECORDS SUMMARY | 2024-11-28 19:14 | XMS_ITS | Referral Summary ---
Author Organization [facility] Address [address] [place] [address] Care Team Providers Care Inside Solar Sales Consultant Name Role Phone No, Physician Primary Care Provider [phone] Encounters Date Type Department Care Team Description 11/27/2024 Telephone [facility] Advanced Medicine Radiation Oncology [address] [place] [address] Trish Young RN from Last 3 Months [...] IV(T2c, N0, M1b, PSA: Less than 10, [place] 7) - Signed by Joana Harvey NP on 03/27/2018 Social History Tobacco Use Types Packs/Day Years Used Date Smoking Tobacco: Never Smokeless Tobacco: Never Tobacco Cessation:Counseling Given: No Personal Safety Answer Date Recorded Getting School Help Needed Not on file 10/08 Sex and Gender Information Value Date Recorded Sex Assigned at Not on file 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 According to the [place] [employer], Serum PSA should decrease and [...] - 06/02/2024 7:11 AM CDT Performed at: [address] [place] [id number] Gas Engineer: Chandler Hendricks PhD, Phone: [phone] us Joana Harvey NP LAB BLOOD ORDERABLES Final Result [facility] 01 from Last 3 Months or Most Recently Relevant to Health Maintenance Insurance * Guarantor: Adelfo Zamorano Account Type Relation to Patient Date of Phone Billing Address Personal/Family Self [address] [facility]PPO Address: [address] [address] [place] [address] MEDICARE COMMERCIAL GENERIC MEDICARE COMMERCIAL GENERIC [place] [id number] MEDICARE [employer] [place] [id number] Care Teams Inside Solar Sales Consultant Relationship Specialty Start Date End Date No, Physician PCP - General 12/09/20
--- OUTSIDE RECORDS SUMMARY | 2024-11-28 19:14 | XMS_ITS | Encounter Summary ---
Author Organization [facility] Address [address] [place] [address] Care Team Providers Care Clip Wrapper Name Role Phone No, Physician Primary Care Provider [phone] Encounter Details Date Type Department Care Team (Late st Contact Info) Description 11/27/2024 Telephone [facility] Advanced Medicine Radiation Oncology [address] [facility] Advanced [place] [address] Trish Young RN Social History Tobacco Use Types Packs/Day Years Used Date Smoking Tobacco: Never Smokeless Tobacco: Never Personal Safety Answer Date Recorded Getting School Help Needed Not on file 10/08 Sex and Gender Information Value Date Recorded Sex Assigned at Not on file 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
--- OUTSIDE RECORDS SUMMARY | 2024-11-28 19:14 | XMS_ITS | Clinical Summary ---
Author Organization [facility] Address [address] [place] [address] Care Team Providers Care Diplomatic Interpreter/Translator Name Role Phone No, Physician Primary Care Provider [phone] Allergies No known active allergies Medications ALPRAZolam [...] Type Department Care Team Description 11/27/2024 Telephone [facility] Advanced [facility] Radiation Oncology [address] [facility] [place] [address] Trish Young RN from Last 3 Months Social History Tobacco Use Types Packs/Day Years Used Date Smoking Tobacco: Never Smokeless Tobacco: Never Tobacco Cessation:Counseling Given: No Personal Safety Answer Date Recorded Getting School Help Needed Not on file 10/08 Sex and Gender Information Value Date Recorded Sex Assigned at Not on file Legal Sex Male 6:57 AM [employer] Gender Identity Not on file Sexual Orientation [...] Comment: [place] ECLIA methodology. According to the [place] [employer], Serum PSA should decrease and [...] 06/02/2024 7:11 AM CDT Performed at: - [address] [id number] Extractions Technician: Chandler Hendricks PhD, Phone: [phone] us Joana Harvey LINEN GRADER LAB BLOOD ORDERABLES Final Result [facility] - from Last 3 Months or Most Recently Relevant to Health Maintenance Insurance [facility] HMO/PPO Address: [address] [address] [place] [address] MEDICARE COMMERCIAL GENERIC Member Subscriber Plan / Payer (Ef fective 2019-Present) Name:Adelfo Zamorano Member ID:[id number] Relation to Subscriber:Self Name:Adelfo Zamorano Subscriber ID:[id number] Payer ID:[id number] Group ID:[id number] Type:COMMERCIAL Address: [id number] [place] [address] MEDICARE COMMERCIAL GENERIC MEDICARE [employer] Care Teams Diplomatic Interpreter/Translator Relationship Specialty Start Date End Date No, Physician PCP - General 12/09/20
--- OUTSIDE RECORDS SUMMARY | 2024-11-28 19:14 | XMS_ITS | Clinical Summary ---
Author Organization [facility] Address [address] [place] [id number] Care Team Providers Care Manager Storage Name Role Phone Nicholas Ramirez MD Primary Care Provider [phone] Social History Tobacco Use Types Packs/Day Years [...] age to complete this topic Care Teams Manager Storage Relationship Specialty Start Date End Date Nicholas Ramirez MD [address] [place] [address] PCP - General 05/09/13
[2024-11-28 19:18] LABS: Alanine Aminotransferase 20 U/L (6-50); Alkaline Phosphatase 76 U/L (38-126); Anion Gap 7 mmol/L (4-12); Aspartate Amino Transferase 23 U/L (17-59); Bilirubin,Total 0.6 mg/dL (0.2-1.3); Blood Urea Nitrogen 18 mg/dL (9-20); Carbon Dioxide 26 mmol/L (22-30); Chloride 106 mmol/L (98-107); Estimated CRCL calculation 76 ml/min; Estimated Glomerular Filt Rate > 60; Glucose 88 mg/dL (65-110); Lipase 48 U/L (23-300); Potassium 3.8 mmol/L (3.4-5.0); Sodium 139 mmol/L (137-145)
[2024-11-28 19:24] LABS: Add Urine Microscopic? YES; Appearance Urine Clear (Clear); Bacteria Urine None Seen /hpf; Bilirubin Urine Negative (Negative); Blood Urine Negative (Negative); Color Urine Yellow (Yellow); Glucose Urine UA Negative (Negative); Ketones Urine Negative (Negative); Leukocyte Esterase Ur Trace LEU/UL (Negative); Nitrate Urine Negative (Negative); Non Pathogenic Casts 0-2; Protein Urine Negative (Negative); RBC Urine 0-2 /hpf (0-2); Specific Grav Ur 1.016 (1.001-1.035); Squamous Epithelial Cell Urine None Seen /hpf (Few); WBC Urine 0-5 /hpf (0-3); pH Urine 5.5 (5.0-9.0)
[2024-11-28] MEDS: MORPHINE SULFATE (*CRX) 4 MG/ML INJ IV PUSH (21:22)
[2024-11-28] MEDS: ONDANSETRON INJ 4 MG/2 ML VIAL IV PUSH (21:23)
[2024-11-28] MEDS: TAMSULOSIN HCL 0.4 MG CAPSULE PO (21:32)
[2024-11-28] MEDS: SODIUM CHLORIDE 0.9% IV 1,000 ML 100 ML IV CONT (21:36)
[2024-11-28 21:38] VITALS: BP 130/80; PULSE 60; RESP 17; O2SAT 95
[2024-11-28 22:15] VITALS: BMI 26.4
--- NOTE | 2024-11-28 22:15 | ADMGEN ---
This patient, Remy Zamorano, was admitted to 3 [facility] Surg Room 317-01. Patient/family oriented to hospital policies and general routines including ID bracelet, bed and alarms, visiting hours, pain management, procedures, bathroom and other care routines, personal items, smoking policy, room service/diet, and visiting hours. Information on how to activate the Rapid Response Team has been discussed. Patient/Family are encouraged to report perceived risks to care and to ask questions if they do not understand what they are told or what they should do.
[2024-11-28 22:23] VITALS: BP 149/82; PULSE 58; RESP 16; TEMP 36.4; O2SAT 96
[2024-11-29] VITALS (9 sets, daily range): BP systolic 112–149; BP diastolic 52–93; PULSE 65–85; RESP 11–20; TEMP 36.1–36.5; O2SAT 94–98
--- NOTE | 2024-11-29 03:22 | P.HP_ITS ---
H&P: HPI History of Present Illness Date/Time: 11/29/24 03:22 Chief Complaint: Possible kidney stone Narrative: 64-year-old male with a past medical history of kidney stones, anxiety, GERD and hyperlipidemia who presented to the ER from home due to persistent left lower abdominal pain and bladder pain. The patient reports he has been having intermittent left lower anterior abdominal pain and bladder discomfort and fullness for the last 2.5 weeks. He reports that the pain is similar to his prior kidney stones but unlike usual this pain did not radiate to his flank area. The patient was evaluated by primary care provider on the and had a UA which was unremarkable. The pain would be a 8/10 in intensity at its worst. It was intermittent and sharp. It would be improved by lying in a certain position. He did not notice any hematuria. His pain was sometimes worse with urination but he denied any dysuria. He reports that he has always been able to passes kidney stones in the past. He does have intermittent dribbling of urine ever since his prostatectomy in 2015 that was performed at [place]. He denies any associated nausea, vomiting or diarrhea. He reports that the pain is been disruptive enough that he has not been sleeping well. He states that his pain is down to 4/10 intensity currently. He has not had any fevers or chills. He denies changes in urinary urgency or frequency. Review of Systems 2 Review of Systems: 12 systems were reviewed with pertinent positives and negatives per HPI. Except as documented in the HPI, all other systems were reviewed and are negative. [facility] Past Medical History Medical History (Updated 11/29/24 @ 03:37 by Gerri Bernal DO) Mixed hyperlipidemia 10/2024 triglycerides 163 total cholesterol 235 LDL 169 meal dL 30 HDL 36 History of hepatitis C Erectile dysfunction Renal calculi Acid reflux Cancer of prostate With history of prostatectomy and radiation treatments Arthritis Anxiety Surgical History Surgical History (Updated 11/29/24 @ 03:37 by Gerri Bernal DO) History of right inguinal hernia repair H/O tooth extraction Pt had all teeth surgically extracted Mar 2022. H/O prostatectomy (~2015) H/O vasectomy Family History Family History Father Family history of lung cancer Father Alcoholism Bone cancer Mesothelioma Depression Hypertension Mother Bone cancer Depression Sibling Astrocytoma brain tumor Other Family history of tuberculosis Social History Social History (Updated 11/29/24 @ 03:40 by Gerri Bernal DO) Social History: The patient lives with his of 41 years. They have 5 daughters. He is retired but used to work for [employer] works for a local [employer]. He briefly smoked but quit over 40 years ago. He only rarely drink alcohol in small amounts and does not drink currently. He denies illicit substance use. Code status: Full code Surrogate decision maker: Smoking packs per day: 1 Smoking cigarettes per day: 20.0 Years smoked: 5 Smoking pack-years: 5.00 Smoking status: Former smoker Tobacco type: cigarettes Second hand tobacco smoke exposure: No Smoking end date: 11/28/78 Alcohol intake: former Alcohol use details: seldom; socially Substance use: never Substance use type: does not use Do You Feel Safe in your Home?: Yes Lack of Transportation: No Lack of Food: Never True Current Housing: I Have Housing Concerned About Future Housing: No Difficulty Paying Gas/Electric Bills: No Difficulty Paying for Meds: No Currently Unemployed: No Education: High School Diploma/GED Difficulty w/ Childcare or Family Care: No Living arrangements: with family Additional living arrangements comments: & CHILDREN Spiritual care concerns: No Agree to blood products: Yes Meds Home Medications and Allergies Home Medications ?Medication ?Instructions ?Recorded ?Confirmed ?Type omeprazole 20 mg delayed 20 mg PO DAILY PRN Indigestion 04/01/21 11/28/24 History release,disintegrating tablet alprazolam 0.5 mg tablet 0.5 mg PO BID PRN anxiety #60 tabs 01/24/24 11/28/24 Rx rosuvastatin 5 mg tablet 5 mg PO DAILY #90 tabs 11/13/24 11/28/24 Rx Allergies Allergy/AdvReac Type Severity Reaction Status Date / Time No Known Allergies Allergy Verified 11/26/24 15:32 Vital Signs Vital Signs - 24 hr 11/28/24 18:12 11/28/24 21:38 11/28/24 22:23 Temperature 97.1 F L 97.6 F Pulse Rate 87 60 58 L Respiratory Rate 16 17 16 Blood Pressure 167/102 H 130/80 149/82 H Pulse Oximetry 96 95 96 Oxygen Delivery 11/28/24 22:58 Temperature Pulse Rate Respiratory Rate Blood Pressure Pulse Oximetry Oxygen Delivery Room Air Exam 2 Narrative: Weight 90.8 kg BMI 26.4 Const: Other: No acute distress, well-developed well-nourished, appears stated age HENMT: Other: Mucous membranes are tacky, no oral pharyngeal erythema, upper and lower dentures in place Eyes: Other: Pupils are equal and reactive, conjunctiva l is mildly injected Neck: Other: No lymphadenopathy, no JVD Resp: Other: Clear to auscultation bilaterally, no increased work of breathing Cardio: Other: Sinus bradycardia, 2+ bilateral radial pedal pulses, no JVD, no murmur GI: Other: Distended, otherwise soft, tenderness in the left lower quadrant, normoactive bowel sounds Skin: Other: Tanned, non jaundice Neuro: Other: Alert oriented, speech is clear, no facial asymmetry, no localizing neurologic deficits noted during conversation Extrem: Other: No clubbing, cyanosis or edema Psych: Other: Appropriate mood and affect, pleasant and cooperative, judgment and insight intact H&P: Results Labs Labs: Laboratory Tests 11/28/24 18:55 11/28/24 18:55 11/28/24 18:55 WBC 5.8 RBC 5.09 Hgb 13.6 L Hct 44.3 MCV 87.0 MCH 26.7 MCHC 30.7 L RDW 13.2 Plt Count 186 MPV 10.5 H Immature Gran % (Auto) 0.3 Neut % (Auto) 52.8 Lymph % (Auto) 28.5 Nuckolls % (Auto) 14.4 H Eos % (Auto) 3.3 Baso % (Auto) 0.7 Lymph # (Auto) 1.66 Nuckolls # (Auto) 0.8 H Eos # (Auto) 0.2 Baso # (Auto) 0.0 Abs Immat Gran (auto) 0.02 Absolute Neuts (auto) 3.1 Absolute Nucleated RBC 0.000 Nucleated RBC % 0.0 Sodium 139 Potassium 3.8 Chloride 106 Carbon Dioxide 26 Anion Gap 7 BUN 18 Creatinine 0.92 Estim Creat Clear Calc 76 Estimated GFR > 60 Glucose 88 Calcium 9.0 Total Bilirubin 0.6 AST 23 ALT 20 Alkaline Phosphatase 76 Total Protein 7.0 Albumin 4.0 Lipase 48 Urine Color Yellow Urine Appearance Clear Urine pH 5.5 Ur Specific [place] 1.016 Urine Protein Negative Urine Glucose (UA) Negative Urine Ketones Negative Ur Blood (Man) Negative Urine Nitrate Negative Urine Bilirubin Negative Urine Urobilinogen 1.0 Leukocyte Esterase Rfl Trace H Urine RBC 0-2 Urine WBC 0-5 Ur Squamous Epith Cells None seen Urine Bacteria None seen Urine Casts 0-2 Impressions Abdomen/Pelvis CT 11/28/24 19:30 IMPRESSION: 1. Left lower ureteric stone with left moderate hydronephrotic changes. 2. Bilateral renal stones. 3. Sliding hiatus hernia. 4. Sclerotic area in the right iliac bone. Further evaluation is advised. All imaging and EKGs personally reviewed and interpreted. And unless stated otherwise agree with radiologic and cardiology interpretation. Assessment and Plan Assessment and plan (1) Hydronephrosis with urinary obstruction due to ureteral calculus: Code(s): N13.2 - Hydronephrosis with renal and ureteral calculous obstruction Status: Acute Plan Patient has a left-sided obstructing kidney stone at the UVJ junction with moderate hydronephrosis. Patient was started on Flomax and IV fluids in the ER. P.r.n. pain medications have been ordered and will be titrated per pain scale. Urology has been consulted. Patient is NPO at midnight for anticipated cystoscopy with stent placement in a.m.. Patient has been admitted as observation status. Quality If No VTE Prophylaxis Answer both mechanical and pharmacologic: Reason no mechanical VTE proph: low risk/not indicated Reason no pharmacologic proph: low risk/not indicated (Patient is up and walking) Hospitalist MIPS Advance Care Plan I have confirmed that the patient's Advanced Care Plan is present, code status is documented, or surrogate decision maker is listed in patient medical record.: Yes Medication Reconciliation I have utilized all available resources to obtain, update and review the patients current medications (includes all prescriptions, OTC, herbals, cannabis, and nutritional supplements).: Yes
[2024-11-29] MEDS: MORPHINE SULFATE (*CRX) 4 MG/ML INJ IV PUSH (05:28)
--- NOTE | 2024-11-29 06:37 | P.CONUR_ITS ---
Assessment and Plan Assessment and plan (1) Bilateral kidney stones: Code(s): N20.0 - Calculus of kidney Status: Acute (2) Calculus of distal left ureter: Code(s): N20.1 - Calculus of ureter Status: Acute Assessment and Plan: * Cystoscopy, left ureteroscopy with stone extraction, possible laser lithotripsy, retrograde pyelography and stent placement Urology Consult Note HPI Date Seen: 11/29/24 Requesting Physician: Gerri Bernal DO Primary Care Provider: Leana Tuttle MD Consult Narrative Narrative: Remy Zamorano is a 64 year old male who has a history of prostatectomy for prostate cancer and recurrent urolithiasis. Several years ago he had shockwave lithotripsy for an upper tract stone. He presents the emergency department with a 10-14 day history of intermittent left flank pain became progressively more severe. It has not been associated with nausea vomiting fevers or gross hematuria. Imaging reveals a obstructing 6 mm left distal ureteral stone, 5 mm nonobstructing left renal stone in smaller bilateral nonobstructing kidney stones. He required admission for hydration and analgesics. After discussion of options he is agreeable to cystoscopy with left ureteroscopy with stone extraction, possible laser lithotripsy retrograde pyelography and stent placement. He is aware that we likely will not address his smaller nonobstructing upper tract stones. Review of Systems 2 Review of Systems: All systems reviewed & are unremarkable except as noted in HPI and below PMFSH Past Medical History Medical History (Updated 11/29/24 @ 06:41 by Isaac Shaikh MD) Mixed hyperlipidemia 10/2024 triglycerides 163 total cholesterol 235 LDL 169 meal dL 30 HDL 36 History of hepatitis C Erectile dysfunction Renal calculi Acid reflux Cancer of prostate With history of prostatectomy and radiation treatments Arthritis Anxiety Surgical History Surgical History (Updated 11/29/24 @ 03:37 by Gerri Bernal DO) History of right inguinal hernia repair H/O tooth extraction Pt had all teeth surgically extracted Mar 2022. H/O prostatectomy (~2015) H/O vasectomy Family History Family History Father Family history of lung cancer Father Alcoholism Bone cancer Mesothelioma Depression Hypertension Mother Bone cancer Depression Sibling Astrocytoma brain tumor Other Family history of tuberculosis Social History Social History (Updated 11/29/24 @ 03:40 by Gerri Bernal, DO) Social History: The patient lives with his of 41 years. They have 5 daughters. He is retired but used to work for [employer] works for a local [employer]. He briefly smoked but quit over 40 years ago. He only rarely drink alcohol in small amounts and does not drink currently. He denies illicit substance use. Code status: Full code Surrogate decision maker: Smoking packs per day: 1 Smoking cigarettes per day: 20.0 Years smoked: 5 Smoking pack-years: 5.00 Smoking status: Former smoker Tobacco type: cigarettes Second hand tobacco smoke exposure: No Smoking end date: 11/28/78 Alcohol intake: former Alcohol use details: seldom; socially Substance use: never Substance use type: does not use Do You Feel Safe in your Home?: Yes Lack of Transportation: No Lack of Food: Never True Current Housing: I Have Housing Concerned About Future Housing: No Difficulty Paying Gas/Electric Bills: No Difficulty Paying for Meds: No Currently Unemployed: No Education: High School Diploma/GED Difficulty w/ Childcare or Family Care: No Living arrangements: with family Additional living arrangements comments: & CHILDREN Spiritual care concerns: No Agree to blood products: Yes Meds Home Medications and Allergies Home Medications ?Medication ?Instructions ?Recorded ?Confirmed ?Type omeprazole 20 mg delayed 20 mg PO DAILY PRN Indigestion 04/01/21 11/28/24 History release,disintegrating tablet alprazolam 0.5 mg tablet 0.5 mg PO BID PRN anxiety #60 tabs 01/24/24 11/28/24 Rx rosuvastatin 5 mg tablet 5 mg PO DAILY #90 tabs 11/13/24 11/28/24 Rx Allergies Allergy/AdvReac Type Severity Reaction Status Date / Time No Known Allergies Allergy Verified 11/26/24 15:32 Vital Signs Vital Signs - 24 hr 11/28/24 18:12 11/28/24 21:38 11/28/24 22:23 Temperature 97.1 F L 97.6 F Pulse Rate 87 60 58 L Respiratory Rate 16 17 16 Blood Pressure 167/102 H 130/80 149/82 H Pulse Oximetry 96 95 96 Oxygen Delivery 11/28/24 22:58 11/29/24 05:31 Temperature 97.2 F L Pulse Rate 70 Respiratory Rate 18 Blood Pressure 112/70 Pulse Oximetry 95 Oxygen Delivery Room Air Exam 2 Const: General: no acute distress Resp: Effort & Inspection: normal respiratory effort GI: Inspection: non-distended GI Palp: No abdominal tenderness and No Guarding due to palpation present (GI) Auscultation: normal bowel sounds Results Labs 11/28/24 18:55 11/28/24 18:55 Labs: Short CBC 11/28/24 Range/Units 18:55 WBC 5.8 (4.5-10.0) K/mm3 Hgb 13.6 L (14.0-18.0) g/dL Hct 44.3 (42.0-52.0) % Plt Count 186 (150-375) k/mm3 BMP 11/28/24 18:55 Sodium 139 Potassium 3.8 Chloride 106 Carbon Dioxide 26 BUN 18 Creatinine 0.92 Glucose 88 Calcium 9.0 Liver Function 11/28/24 Range/Units 18:55 Total Bilirubin 0.6 (0.2-1.3) mg/dL AST 23 (17-59) U/L ALT 20 (6-50) U/L Alkaline Phosphatase 76 (38-126) U/L Albumin 4.0 (3.5-5.1) g/dL Urine 11/28/24 Range/Units 18:55 Urine Color Yellow (Yellow) Urine Appearance Clear (Clear) Urine pH 5.5 (5.0-9.0) Ur Specific [place] 1.016 (1.001-1.035) Urine Protein Negative (Negative) mg/dL Urine Glucose (UA) Negative (Negative) mg/dL
--- NOTE | 2024-11-29 06:42 | WPDHPUPDATE1 ---
History and Physical Update Update Date/Time: 11/29/24 06:42 History and Physical has been reviewed, including an updated exam of the patient. There are NO changes in the patient's condition. Risks, benefits, and alternatives have been discussed and questions answered. Patient agrees to proceed with procedure.
[2024-11-29] MEDS: SODIUM CHLORIDE 0.9% IV 1,000 ML 100 ML IV CONT (06:47)
--- NOTE | 2024-11-29 08:59 | P.PNIM_ITS ---
Progress Note: A&P Assessment and Plan (1) Hydronephrosis with urinary obstruction due to ureteral calculus: Code(s): N13.2 - Hydronephrosis with renal and ureteral calculous obstruction Status: Acute Assessment and Plan: Patient has a left-sided obstructing kidney stone at the UVJ junction with moderate hydronephrosis. started on Flomax and IV fluids in the ER. P.r.n. pain medications Urology consulted. Patient is NPO for anticipated cystoscopy with stent placement in afternoon (2) Anxiety: Code(s): F41.9 - Anxiety disorder, unspecified Status: Acute Assessment and Plan: Continue home Xanax (3) Mixed hyperlipidemia: Code(s): E78.2 - Mixed hyperlipidemia Status: Acute Assessment and Plan: Continue Crestor Time Spent With Patient Time with patient: 25 - 35 minutes Subjective Date/time seen: 11/29/24 08:59 Interval history: 64-year-old male with a past medical history of kidney stones, anxiety, GERD and hyperlipidemia who presented to the ER from home due to persistent left lower abdominal pain and bladder pain. Plan for cystoscopy today with , patient rates pain 11/22 Review of Systems Review of Systems: 12 systems were reviewed with pertinent positives and negatives per HPI. Except as documented in the HPI, all other systems were reviewed and are negative. Exam Narrative: General: well appearing, appears stated age. HEENT: normocephalic, atraumatic. Mucous membranes moist. EOMI, PERRLA, bilateral sclera anicteric, no conjunctival injection. Neck supple without JVD, lymphadenopathy, or bruit. Respiratory: clear to ascultation bilaterally. No rales/rhonic/wheezes. Cardiovascular: Regular rate and rhythm, normal S1-S2 upon ascultation. No murmurs, rubs, or clicks. PMI is nondisplaced, capillary refill less than 3 second. Abdomen: Soft, round, no pulsatile masses, nondistended and nontender. No rebound, no guarding. No CVA tenderness, no hepatosplenomegaly. Bowel sounds present to all four quadrants. No high pitch or tinkling sounds, resonant to percussion. Extremities: No cyanosis, clubbing, or edema present. Pulses are palpable 2/2. Active ROM to all four extremities. Neuro: Alert and orientated x 4. PERRLA. Cranial nerves 2-12 intact without focal deficit. Skin: Warm, dry, and intact, without rash, erythema, or lesion. Psych: pleasant, cooperative, normal speech, normal affect, no hallucinations, no dysarthia Objective Data Vital Signs Vital Signs: Vital Signs - 24 hr 11/28/24 18:12 11/28/24 21:38 11/28/24 22:23 Temperature 97.1 F L 97.6 F Pulse Rate 87 60 58 L Respiratory Rate 16 17 16 Blood Pressure 167/102 H 130/80 149/82 H Pulse Oximetry 96 95 96 Oxygen Delivery 11/28/24 22:58 11/29/24 05:31 Temperature 97.2 F L Pulse Rate 70 Respiratory Rate 18 Blood Pressure 112/70 Pulse Oximetry 95 Oxygen Delivery Room Air Intake/Output Intake/Output: Intake & Output 11/26/24 11/27/24 11/28/24 11/29/24 23:59 23:59 23:59 23:59 Intake Total 918.3 Output Total 350 Balance 568.3 Meds/Results Medications: Active Medications Generic Name Dose Route Start Last Admin Trade Name Freq PRN Reason Stop Dose Admin Hydrocodone Bitart/Acetaminophen 1 tab 11/28/24 21:15 Hydrocodone/Acetaminophen (*Crx) 5-325 Mg Tablet PO Q4H PRN Pain Rated 4-6 Alprazolam 0.5 mg 11/29/24 03:30 Alprazolam (*Crx) 0.5 Mg Tablet PO BID PRN anxiety Sodium Chloride 1,000 mls @ 100 mls/hr 11/28/24 21:15 11/29/24 06:47 Normal Saline Iv IV CONT 100 mls/hr .Q10H KEVON Administration Morphine Sulfate 4 mg 11/28/24 21:15 11/29/24 05:28 Morphine Sulfate (*Crx) 4 Mg/Ml Inj IV PUSH 4 mg Q2H PRN Administration Pain Rated 7-10 Ondansetron HCl 4 mg 11/28/24 21:15 Ondansetron Inj 4 Mg/2 Ml Vial IV PUSH Q4H PRN Nausea Rosuvastatin Calcium 5 mg 11/29/24 09:00 Rosuvastatin 5 Mg Tablet PO DAILY [facility] Tamsulosin HCl 0.4 mg 11/29/24 09:00 Tamsulosin Hcl 0.4 Mg Capsule PO QAM [facility] Radiology Results: ITS Impressions Abdomen/Pelvis CT 11/28/24 19:30 IMPRESSION: 1. Left lower ureteric stone with left moderate hydronephrotic changes. 2. Bilateral renal stones. 3. Sliding hiatus hernia. 4. Sclerotic area in the right iliac bone. Further evaluation is advised. Labs Labs: Laboratory Results - last 24 hr 11/28/24 18:55 WBC 5.8 RBC 5.09 Hgb 13.6 L Hct 44.3 MCV 87.0 MCH 26.7 MCHC 30.7 L RDW 13.2 Plt Count 186 MPV 10.5 H Immature Gran % (Auto) 0.3 Neut % (Auto) 52.8 Lymph % (Auto) 28.5 [place] % (Auto) 14.4 H Eos % (Auto) 3.3 Baso % (Auto) 0.7 Lymph # (Auto) 1.66 [place] # (Auto) 0.8 H Eos # (Auto) 0.2 Baso # (Auto) 0.0 Abs Immat Gran (auto) 0.02 Absolute Neuts (auto) 3.1 Absolute Nucleated RBC 0.000 Nucleated RBC % 0.0 Sodium 139 Potassium 3.8 Chloride 106 Carbon Dioxide 26 Anion Gap 7 BUN 18 Creatinine 0.92 Estim Creat Clear Calc 76 Estimated GFR > 60 Glucose 88 Calcium 9.0 Total Bilirubin 0.6 AST 23 ALT 20 Alkaline Phosphatase 76 Total Protein 7.0 Albumin 4.0 Lipase 48 Urine Color Yellow Urine Appearance Clear Urine pH 5.5 Ur Specific [place] 1.016 Urine Protein Negative Urine Glucose (UA) Negative Urine Ketones Negative Ur Blood (Man) Negative Urine Nitrate Negative Urine Bilirubin Negative Urine Urobilinogen 1.0 Leukocyte Esterase Rfl Trace H Urine RBC 0-2 Urine WBC 0-5 Ur Squamous Epith Cells None seen Urine Bacteria None seen Urine Casts 0-2 Quality VTE Prophylaxis VTE prophylaxis: mechanical ordered Hospitalist [facility] Advance Care Plan I have confirmed that the patient's Advanced Care Plan is present, code status is documented, or surrogate decision maker is listed in patient medical record.: Yes Medication Reconciliation I have utilized all available resources to obtain, update and review the patients current medications (includes all prescriptions, OTC, herbals, cannabis, and nutritional supplements).: Yes
--- NOTE | 2024-11-29 14:10 | P.PNAN_ITS ---
Anes - Initial Pre Proc Eval Procedure: Operation Date: 11/29/24 14:00 Proposed Procedures p Cystoscopy, Left Retrograde Pyelogram, Left Ureteroscopy, Left Stone Extraction, Possible Holmium Laser, Possible Stent Placement - Isaac Shaikh MD Date/Time: 11/29/24 14:10 Surgeon: Gerri Bernal DO Pre Op Diagnosis: L distal ureteral stone Patient Data Age: 64 Gender: M Height: 1.85 m Weight: 90.8 kg Last Vital Signs Temp 97.2 F L 11/29/24 05:31 Pulse 70 11/29/24 05:31 Resp 18 11/29/24 05:31 BP 112/70 11/29/24 05:31 Pulse Ox 95 11/29/24 05:31 O2 Del Method Room Air 11/28/24 22:58 Allergies Allergy/AdvReac Type Severity Reaction Status Date / Time No Known Allergies Allergy Verified 11/29/24 13:37 Home Medications ?Medication ?Instructions ?Recorded ?Confirmed ?Type omeprazole 20 mg delayed 20 mg PO DAILY PRN Indigestion 04/01/21 11/28/24 History release,disintegrating tablet alprazolam 0.5 mg tablet 0.5 mg PO BID PRN anxiety #60 tabs 01/24/24 11/28/24 Rx rosuvastatin 5 mg tablet 5 mg PO DAILY #90 tabs 11/13/24 11/28/24 Rx Laboratory Tests 11/28/24 18:55 WBC 5.8 K/mm3 (4.5-10.0) RBC 5.09 M/mm3 (4.6-6.20) Hgb 13.6 L g/dL (14.0-18.0) Hct 44.3 % (42.0-52.0) MCV 87.0 fl (80-100) MCH 26.7 pg (26-34) MCHC 30.7 L g/dl (32-36) RDW 13.2 % (11.5-14.5) Plt Count 186 k/mm3 (150-375) MPV 10.5 H fl (7.4-10.4) Immature Gran % (Auto) 0.3 % (0-0.5) Neut % (Auto) 52.8 % (45.5-73.1) Lymph % (Auto) 28.5 % (18.3-44.2) [place] % (Auto) 14.4 H % (2.6-8.5) Eos % (Auto) 3.3 % (0-4.4) Baso % (Auto) 0.7 % (0.2-1.2) Lymph # (Auto) 1.66 K/mm3 (0.9-3.2) [place] # (Auto) 0.8 H K/mm3 (0.1-0.6) Eos # (Auto) 0.2 K/mm3 (0-0.3) Baso # (Auto) 0.0 K/mm3 (0.0-0.1) Abs Immat Gran (auto) 0.02 K/mm3 (0.00-0.031) Absolute Neuts (auto) 3.1 K/mm3 (1.3-6.7) Absolute Nucleated RBC 0.000 K/mm3 (0.0-0.012) Nucleated RBC % 0.0 % (0.0-0.2) Sodium 139 mmol/L (137-145) Potassium 3.8 mmol/L (3.4-5.0) Chloride 106 mmol/L (98-107) Carbon Dioxide 26 mmol/L (22-30) Anion Gap 7 mmol/L (4-12) BUN 18 mg/dL (9-20) Creatinine 0.92 mg/dL (0.7-1.3) Estim Creat Clear Calc 76 ml/min Estimated GFR > 60 (59 - ) Glucose 88 mg/dL (65-110) Calcium 9.0 mg/dL (8.4-10.2) Total Bilirubin 0.6 mg/dL (0.2-1.3) AST 23 U/L (17-59) ALT 20 U/L (6-50) Alkaline Phosphatase 76 U/L (38-126) Total Protein 7.0 g/dL (6.3-8.2) Albumin 4.0 g/dL (3.5-5.1) Lipase 48 U/L (23-300) Urine Color Yellow (Yellow) Urine Appearance Clear (Clear) Urine pH 5.5 (5.0-9.0) Ur Specific [place] 1.016 (1.001-1.035) Urine Protein Negative mg/dL (Negative) Urine Glucose (UA) Negative mg/dL (Negative) Urine Ketones Negative mg/dL (Negative) Ur Blood (Man) Negative (Negative) Urine Nitrate Negative (Negative) Urine Bilirubin Negative (Negative) Urine Urobilinogen 1.0 mg/dL (<2.0) Leukocyte Esterase Rfl Trace H ALEJANDRINA/UL (Negative) Urine RBC 0-2 /hpf (0-2) Urine WBC 0-5 /hpf (0-3) Ur Squamous Epith Cells None seen /hpf (Few) Urine Bacteria None seen /hpf Urine Casts 0-2 Patient hx anesthesia problems: none Family hx anesthesia problems: none Results Review: All pre-operative results and documents have been reviewed as part of the pre- operative evaluation. [facility] Past Medical History Medical History (Updated 11/29/24 @ 09:01 by Ana Paula Coleman APRN) Mixed hyperlipidemia 10/2024 triglycerides 163 total cholesterol 235 LDL 169 meal dL 30 HDL 36 History of hepatitis C Erectile dysfunction Renal calculi Acid reflux Cancer of prostate With history of prostatectomy and radiation treatments Arthritis Anxiety Surgical History Surgical History (Updated 11/29/24 @ 03:37 by Gerri Bernal DO) History of right inguinal hernia repair H/O tooth extraction Pt had all teeth surgically extracted Mar 2022. H/O prostatectomy (~2015) H/O vasectomy Family History Family History Father Family history of lung cancer Father Alcoholism Bone cancer Mesothelioma Depression Hypertension Mother Bone cancer Depression Sibling Astrocytoma brain tumor Other Family history of tuberculosis Social History Social History (Updated 11/29/24 @ 03:40 by Gerri Bernal DO) Social History: The patient lives with his of 41 years. They have 5 daughters. He is retired but used to work for [employer] works for a [employer]. He briefly smoked but quit over 40 years ago. He only rarely drink alcohol in small amounts and does not drink currently. He denies illicit substance use. Code status: Full code Surrogate decision maker: Smoking packs per day: 1 Smoking cigarettes per day: 20.0 Years smoked: 5 Smoking pack-years: 5.00 Smoking status: Former smoker Tobacco type: cigarettes Second hand tobacco smoke exposure: No Smoking end date: 11/28/78 Alcohol intake: former Alcohol use details: seldom; socially Substance use: never Substance use type: does not use Do You Feel Safe in your Home?: Yes Lack of Transportation: No Lack of Food: Never True Current Housing: I Have Housing Concerned About Future Housing: No Difficulty Paying Gas/Electric Bills: No Difficulty Paying for Meds: No Currently Unemployed: No Education: High School Diploma/GED Difficulty w/ Childcare or Family Care: No Living arrangements: with family Additional living arrangements comments: & CHILDREN Spiritual care concerns: No Agree to blood products: Yes Anes - Eval Final PreProcedure Day of Procedure 11/29/24 14:10 Patient weight: normal Heart: regular rate and rhythm Lungs: clear to auscultation Airway: Mallampati scale class II Neurological: alert and oriented Last oral intake: >/= 8 hours ASA classification: III Emergent: no Anesthetic plan: proceed Anesthesia type and monitoring: general LMA and standard monitoring Results Review: All pre-operative results and documents have been reviewed as part of the pre- operative evaluation. Informed Consent: The patient's anesthetic plan and its attendant risks and benefits were discussed with the patient/family/POA. Questions were solicited and answers provided to the satisfaction of the patient/family/POA.
[2024-11-29] MEDS: ceFAZolin 2 GM/D5W 50 ML 2 GM/50 ML BAG IVPB (14:17)
[2024-11-29] MEDS: KETOROLAC 30 MG/ML VIAL (*BKC) IM (15:03)
[2024-11-29] MEDS: LACTATED RINGERS 1,000 ML 30 ML IV CONT (15:13)
--- NOTE | 2024-11-29 15:34 | W.PM.PROC2 ---
Procedure Note - Detailed Date of Procedure 11/29/24 Pre-op Diagnosis L distal ureteral stone Post-op Diagnosis Same Procedure Performed Cystoscopy, left ureteroscopy with laser lithotripsy, stone extraction and retrograde pyelography Surgeon Isaac Shaikh MD Anesthesia General Description of Procedure Patient is brought to the operative suite was prepped and draped in routine sterile fashion while in dorsal lithotomy position after the uneventful induction of a general anesthetic. 2% xylocaine jelly was introduced intraurethrally left the [place] appropriate. Time. Cystoscopy was undertaken with a 19 F rigid cystoscope. There was no urethral stricture and minimal prostatic hyperplasia. Bladder mucosa is normal without hyperemia. There is no intravesical foreign body or neoplasm. Is a single orthotopic ureteral orifice bilaterally. A 0.035 in glidewire was advanced in the left renal pelvis and the distal ureter was dilated with an 8 F 10 F dilator under fluoroscopy. Ureteroscopy was undertaken with a short tapered semi-rigid ureteral scope. The stone was just large enough I cannot remove it intact with a 1.9 F disposable stone basket. Using a 200 micron Leroy laser fiber and fractured the stone into 4 smaller pieces all of which were removed with ease. Because of the ease of this manipulation and minimal apparent ureteral edema I opted not to place ureteral stent. I did do a retrograde pyelogram which showed no evidence of extravasation and no significant obstruction. Scopes wires removed and he was taken to the recovery room in good condition. Urine Output 0 Drains No Pathology Yes Complications No immediate complications Condition Stable
--- NOTE | 2024-11-30 14:58 | P.DS_ITS ---
DS: Admitting Diagnosis Discharge Date 11/29/24 Admitting Diagnosis Flank pain DS: Discharge Diagnosis Discharge Diagnosis (1) Hydronephrosis with urinary obstruction due to ureteral calculus: Code(s): N13.2 - Hydronephrosis with renal and ureteral calculous obstruction Status: Acute Assessment and Plan: Patient has a left-sided obstructing kidney stone at the UVJ junction with moderate hydronephrosis. started on Flomax and IV fluids in the ER. P.r.n. pain medications Urology consulted. Patient is NPO for anticipated cystoscopy with stent placement in afternoon (2) Anxiety: Code(s): F41.9 - Anxiety disorder, unspecified Status: Acute Assessment and Plan: Continue home Xanax (3) Mixed hyperlipidemia: Code(s): E78.2 - Mixed hyperlipidemia Status: Acute Assessment and Plan: Continue Crestor DS: Summary Hospital Course Reason for hospitalization: Hydronephrosis with urinary obstruction due to ureteral calculus Hospital Course: 64-year-old male with a past medical history of kidney stones, anxiety, GERD and hyperlipidemia who presented to the ER from home due to persistent left lower abdominal pain and bladder pain. See H&P for details. Patient had a cystoscope with with removal of the stone and he did not need a stent. After the procedure the patient was able to eat, his pain was controlled. He was stable for discharge. He will follow-up outpatient with Urology. Status at Discharge Functional status at discharge: independent ambulation Time Spent with Patient Time attestation: Total time spent providing and/or coordinating discharge services: Exam Narrative: General: well appearing, appears stated age. HEENT: normocephalic, atraumatic. Mucous membranes moist. EOMI, PERRLA, bilateral sclera anicteric, no conjunctival injection. Neck supple without JVD, lymphadenopathy, or bruit. Respiratory: clear to ascultation bilaterally. No rales/rhonic/wheezes. Cardiovascular: Regular rate and rhythm, normal S1-S2 upon ascultation. No murmurs, rubs, or clicks. PMI is nondisplaced, capillary refill less than 3 second. Abdomen: Soft, round, no pulsatile masses, nondistended and nontender. No rebound, no guarding. No CVA tenderness, no hepatosplenomegaly. Bowel sounds present to all four quadrants. No high pitch or tinkling sounds, resonant to percussion. Extremities: No cyanosis, clubbing, or edema present. Pulses are palpable 2/2. Active ROM to all four extremities. Neuro: Alert and orientated x 4. PERRLA. Cranial nerves 2-12 intact without focal deficit. Skin: Warm, dry, and intact, without rash, erythema, or lesion. Psych: pleasant, cooperative, normal speech, normal affect, no hallucinations, no dysarthia Russell catheter DS: Data Data Completed and Pending Pending studies at discharge: Pending at discharge 11/29/24 14:55 Surgical [PTH] Routine Discharge Plan Discharge Attending physician on discharge: Gerri Bernal Consulting providers: Isaac Shaikh; Beverly Zapata; Ana Paula Coleman; Claude Ness; Ally Short; Edilberto Villa Discharging Clinician: Isaac Shaikh Patient Disposition: Home Activity: other - see discharge instructions Diet: other - see discharge instructions Discharge Instructions: 1) Activity: no driving or important decisions x24 hours. 2) Diet: resume your normal, pre-admission diet. 3) Follow-up: 1-2 weeks / call for appointment ([phone]). Patient Instructions: Antibiotic Form Patient Language: Icelandic Stand Alone Forms: General Discharge Information Follow-up/Referrals: Isaac Shaikh MD [Physician] - Discharge Medications: New hydrocodone-acetaminophen 5-325 mg tablet 1 - 2 tablet PO Q6H PRN (Reason: severe pain (scale score 7-10)) Qty: 20 0RF ketorolac 10 mg tablet 10 mg PO Q6H 5 Days Qty: 20 0RF tamsulosin 0.4 mg Capsule 0.4 mg PO QAM Qty: 30 0RF Continued omeprazole 20 mg tablet,disintegrat, delay rel 20 mg PO DAILY PRN (Reason: Indigestion) alprazolam 0.5 mg tablet 0.5 mg PO BID PRN (Reason: anxiety) Qty: 60 0RF rosuvastatin 5 mg tablet 5 mg PO DAILY Qty: 90 1RF Date of admission: 11/28/24 21:15 Primary Care Provider: Leana Tuttle Admitting Provider: Gerri Bernal Attending physician on admission: Gerri Bernal Condition: Stable Quality VTE Prophylaxis VTE prophylaxis: mechanical ordered Hospitalist MIPS Heart Failure (Exclusion) Patient has history of Heart Transplant or Left Ventricular Assistive Device?: No IF YES, STOP HERE Heart Failure (Qualifier) Patient has current or prior documentation of LVEF less than or equal to 40%, or mod/servere depressed LVSF?: No IF NO, STOP HERE
== END 2024-11-29 19:35 | disposition home or self-care (01) ==
LOC: ANHED 20:51 → ANH3MEDSUR 21:37
PROVIDERS: Physician Assistant; Urology; Admitting Provider Internal Medicine; Emergency Provider Physician Assistant; PCP Family Medicine; Visit Provider Internal Medicine
PROC: (CPT 52352; principal; 2024-11-29 14:00)
DX: N13.2 Hydronephrosis with renal and ureteral calculous obstruction (principal); F41.9 Anxiety disorder, unspecified; E78.2 Mixed hyperlipidemia; K21.9 Gastro-esophageal reflux disease without esophagitis; Z85.46 Personal history of malignant neoplasm of prostate; Z86.19 Personal history of other infectious and parasitic diseases; Z87.891 Personal history of nicotine dependence; Z90.79 Acquired absence of other genital organ(s); Z87.442 Personal history of urinary calculi; Z79.899 Other long term (current) drug therapy
CPT/HCPCS: 52353; 36415; 74018; 74176; 74420; 80053; 81001; 82365; 83690; 85025; 88300; 96374; 96375; 96376; 99285; A9270; C1769; G0378; J0690; J1100; J1885; J2003; J2250; J2270; J2310; J2405; J2704; J3010; J7030; J7120; Q9966